=== PATIENT | male | born 1980 | race Two or more races ===

== ENCOUNTER 2019-09-27 22:32 | Inpatient (IN) | payer MEDICAID ==
[~2019-09-27] VITALS: Ht 177.8 cm; Wt 92.6 kg
[2019-09-27 23:14] LABS: Urine Bacteria NONE SEEN /hpf (None Seen); Urine Blood Negative /uL (Negative); Urine Mucus FEW (None Seen); Urine Specific Gravity 1.025 (1.001-1.035); Urine WBC <1 /hpf (0 - 3)
[2019-09-27 23:28] LABS: Basophils # (auto) 0.1 10 ^3/uL (0-0.2); Basophils % (auto) 0.4 % (0.0-2.0); Eosinophils # (auto) 0 10 ^3/uL (0-0.8); Eosinophils % (auto) 0.3 % (0.0-7.0); Hematocrit 45.2 % (41.0-53.0); Hemoglobin 15.3 g/dL (13.5-17.5); Lymphocytes # (auto) 2.8 10 ^3/uL (0.4-5.4); Lymphocytes % (auto) 17.1 % (10.0-50.0); Mean Corpuscular Hemoglobin 31.7 pg (28.0-32.0); Mean Corpuscular Hgb Conc. 33.9 g/dL (32.0-36.0); Mean Corpuscular Volume 93.5 fL (80.0-100.0); Neutrophils # (auto) 11.6 10 ^3/uL (1.6-8.6); Neutrophils % (auto) 70.2 % (37.0-80.0); Nucleated Red Blood Cells % 0.1 %; Platelet Count (auto) 265 10^3/uL (140-450); Red Blood Cells 4.83 10^6/uL (4.5-5.90); Red Cell Distribution Width 12.9 % (11.8-14.3); White Blood Cell 16.5 10^3/uL (4.4-10.8)
[2019-09-27] MEDS ORDERED: SODIUM CHLORIDE 0.9% 1,000 ML IV ONE (23:45)
[2019-09-27] MEDS ORDERED: metroNIDAZOLE 500MG/100ML 100 ML IV ONE (23:45)
[2019-09-27] MEDS ORDERED: MORPHINE SULFATE 10 MG/ML INJ 1ML SDV IV ONE (23:45)
[2019-09-27] MEDS ORDERED: cefTRIAXone 1GM/50ML D5W 50 ML IV ONE (23:45)
[2019-09-27] MEDS ORDERED: ACETAMINOPHEN 325 MG TAB PO ONE (23:45)
[2019-09-27] MEDS ORDERED: ONDANSETRON HCL 4 MG/2 ML VIAL IV ONE (23:45)
[2019-09-27 23:46] LABS: Albumin 3.9 g/dL (3.4-5.0); Calcium 8.3 mg/dL (8.5-10.1); Magnesium 2.1 mg/dL (1.6-2.6); Potassium 3.7 mmol/L (3.5-5.1)
[2019-09-27 23:49] LABS: BUN/Creatinine Ratio 14.7; Bilirubin, Total 0.9 mg/dL (0.2-1.0); Total Protein 8.7 g/dL (6.4-8.2)
[2019-09-28] VITALS (8 sets, daily range): BP systolic 120–143; BP diastolic 73–89
[2019-09-28] MEDS ORDERED: MORPHINE SULF INJ 2 MG/ML SYRINGE 1ML IV PRN (01:00)
[2019-09-28] MEDS ORDERED: NITROGLYCERIN 0.4 MG SL TAB SL PRN (01:00)
[2019-09-28] MEDS: SODIUM CHLORIDE 0.9% 1,000 ML IV SCH ×3 (02:48→17:35)
[2019-09-28] MEDS ORDERED: ALPR0.5T7 PO (05:24)
[2019-09-28] MEDS: metroNIDAZOLE 500MG/100ML 100 ML IV SCH ×3 (05:27→22:27)
[2019-09-28] MEDS: MORPHINE SULFATE 4 MG/ML SYR/VIAL IV PRN ×3 (05:39→20:47)
--- NOTE | 2019-09-28 07:10 | NUR ---
0300PATIENT ADMITTED FROM ER THIS MORNING WITH CMPLAINT OF ABDOMINAL MON.PATIENT WAS AWAKE AND ALERT AND ORIENTED X 4. PATIENT DENIED PAIN. WAS AFEBRILE ABDOMEN WAS SOFT AND NONTENDER.IV FLUID INFUSING AT 90ML PER HOUR. IV SITE CLEAR AND DRY. PATIENT WAS AMBULATORY AND S NPO. AT 0539 MEDICATED FOR PAIN. SLEPT SOON AFTER.
--- NOTE | 2019-09-28 07:30 | NUR ---
Opening Shift Note Assumed care of patient, alert and oriented x4. Respirations are even and unlabored. No S/S of distress/SOB. Reporting RLQ abdominal tenderness at this time. Bed is low, locked with x2 rails up. Call light is within reach. Instructed on POC and to call for assist PRN, will continue to monitor for changes Q1hr and PRN.
[2019-09-28] MEDS: cefTRIAXone 1GM/50ML D5W 50 ML IV SCH (08:32)
--- NOTE | 2019-09-28 08:40 | NUR ---
Dr. Stafford at bedside Dr. Stafford at bedside for surgical consult. MD is updating patient on POC. Patient verbalized understanding.
[2019-09-28] MEDS: PANTOPRAZOLE 40 MG/10 ML VIAL INJ IV SCH (09:31)
--- NOTE | 2019-09-28 10:43 | NUR ---
No insurance Left message with Rohith Bond in regards to patient not having insurance. Waiting for call back.
--- NOTE | 2019-09-28 11:30 | NUR ---
Pain Patient reporting 9/10 abdominal pain on adult pain scale. Patient is reporting pain as sharp in nature to RLQ/umbilical area. Medicated per MD order. Bed is low, locked with 2x side rails up. Call light is within reach. Will reassess.
--- NOTE | 2019-09-28 12:05 | NUR ---
Reassessment: Pain Upon entering the room this nurse found patient to be resting with eyes closed. No distress noted. Respirations are even and unlabored. Bed is low, locked with 2x side rails up. Call light is within reach. Will continue to monitor.
--- NOTE | 2019-09-28 12:20 | NUR ---
PICC LINE CONSENT Signed by patient and MD. Filed in chart. Emma (picc line nurse) stated she will either see patient later today or possibly tomorrow morning. Will continue to monitor.
[2019-09-28 14:37] LABS: INR 1.11 (0.9-1.15)
[2019-09-28] MEDS ORDERED: TPN PER PHARMACY 0 ML IV SCH (15:00)
[2019-09-28] MEDS ORDERED: AMINO ACID INFUSION IN D5W 2,000 ML IV NR (20:00)
--- NOTE | 2019-09-28 20:56 | NUR ---
PICC line placement Patient educated on need for PICC line placement. All risks and benefits explained and all questions and concerns addressed prior to procedure. Noted past medical history and allergies with no contraindications. INR and Plt counts within acceptable range. 5fr PICC line inserted via right basilic vein using [employer] US and Tip Location System. Sterile technique with maximum barrier precautions utilized. Blood return obtained from each of 2 lumens and each flushed easily with NS using proper technique. PICC secured with Stat-lock; biodisc and occlusive dressing applied. Stat portable chest x-ray obtained for PICC tip placement. *Baseline Arm Circumference 35cm. PICC lot #[id number]. INTERNAL LENGTH 44CM EXTERNAL LENGTH 0CM
[2019-09-28] MEDS ORDERED: LIDOCAINE 1% (LOCAL ANESTH.) PF 5ml SDV ID ONE (21:00)
--- NOTE | 2019-09-28 21:58 | NUR ---
DOUBLE LUMEN PICC LINE INSERTED RIGH UPPER ARM AN HOUR AGO. XRAY VARIFICATION DONE. PLACEMENT CONFIRMED CORRECT FOR USE.
--- NOTE | 2019-09-28 22:19 | NUR ---
OK to use PICC line Xray completed. OK to use PICC line by radiologist.
[2019-09-28] MEDS: SODIUM CHLOR 0.9% PF (SALINE LOCK) 10ML VIAL/SYR IV SCH (22:26)
[2019-09-29] MEDS ORDERED: DEXTROSE (50%) 50ML SYRG IV SCH
[2019-09-29 05:00] VITALS: BP 132/88
[2019-09-29] MEDS: SODIUM CHLORIDE 0.9% 1,000 ML IV SCH ×2 (05:27→13:46)
[2019-09-29] MEDS: metroNIDAZOLE 500MG/100ML 100 ML IV SCH ×3 (05:36→22:03)
[2019-09-29 05:38] LABS: Basophils # (auto) 0.1 10 ^3/uL (0-0.2); Basophils % (auto) 0.5 % (0.0-2.0); Eosinophils # (auto) 0.1 10 ^3/uL (0-0.8); Eosinophils % (auto) 0.4 % (0.0-7.0); Hematocrit 40.5 % (41.0-53.0); Hemoglobin 13.7 g/dL (13.5-17.5); Lymphocytes # (auto) 3.4 10 ^3/uL (0.4-5.4); Mean Corpuscular Hemoglobin 31.9 pg (28.0-32.0); Mean Corpuscular Hgb Conc. 33.9 g/dL (32.0-36.0); Mean Corpuscular Volume 94.1 fL (80.0-100.0); Monocytes # (auto) 1.8 10 ^3/uL (0-1.3); Monocytes % (auto) 10.8 % (0.0-12.0); Neutrophils # (auto) 11.6 10 ^3/uL (1.6-8.6); Neutrophils % (auto) 68.3 % (37.0-80.0); Nucleated Red Blood Cells % 0.1 %; Platelet Count (auto) 228 10^3/uL (140-450); Red Cell Distribution Width 13.1 % (11.8-14.3)
[2019-09-29 05:57] LABS: Albumin 3.3 g/dL (3.4-5.0); Magnesium 2.2 mg/dL (1.6-2.6); Potassium 3.7 mmol/L (3.5-5.1)
[2019-09-29] MEDS: InsuLIN REG 1unit/0.01ml Soln (100units/ml) SC SCH ×5 (06:00→23:53)
[2019-09-29] MEDS: ACCU-CHEK COMFORT CURVE STRIP VI SCH ×5 (06:01→23:53)
[2019-09-29 06:03] LABS: BUN/Creatinine Ratio 12.8; Phosphorus 3.2 mg/dL (2.5-4.90); Pre Albumin 15.1 mg/dL (20.0-40.0); Total Protein 7.6 g/dL (6.4-8.2)
--- NOTE | 2019-09-29 07:35 | NUR ---
Opening Note Received report from waiter/waitress formal RN. Patient is awake, alert and oriented x4. No signs or symptoms of distress noted at this time. Patient complains of abdominal pain 8/, will mediate per orders. Patient is on room air, respirations even and unlabored. Reviewed plan of care with patient, patient verbalized understanding. Bed in low and locked position, call light within reach. Will continue to monitor Q1 hour and PRN.
[2019-09-29] MEDS: PANTOPRAZOLE 40 MG/10 ML VIAL INJ IV SCH (09:34)
[2019-09-29] MEDS: cefTRIAXone 1GM/50ML D5W 50 ML IV SCH (09:34)
--- NOTE | 2019-09-29 09:45 | NUR ---
Pain Patient complains of abdominal pain 8/10 and is requesting medications. Will medicate per orders. Will continue to monitor Q1 hour and PRN.
[2019-09-29] MEDS: MORPHINE SULFATE 4 MG/ML SYR/VIAL IV PRN (09:46)
[2019-09-29] MEDS: SODIUM CHLOR 0.9% PF (SALINE LOCK) 10ML VIAL/SYR IV SCH ×2 (11:11→22:03)
[2019-09-29 13:21] VITALS: BP 126/81
--- NOTE | 2019-09-29 13:53 | NUR ---
TPN Consult Consider increasing TPN rate to meet or exceed 75% of needs Est Energy needs 5372-9866 kcal (20-25 kcal/kg BW 93.4 kg) Est protein needs 75-93g (0.8-1g/kg BW 93.4kg) Will reassess prn Addendum: 09/29/19 at [address] Amended: Links added.
[2019-09-29 16:27] VITALS: BP 132/85
--- NOTE | 2019-09-29 19:10 | NUR ---
Closing Note Report given to employee relations assistant RN. No signs or symptoms of distress noted at this time.
--- NOTE | 2019-09-29 19:40 | NUR ---
Opening Shift Note Assumed care of patient, awake and alert x4. No S/S of distress/SOB or pain. Call light is within reach, side rails up x2, bed is in the lowest position. Instructed on POC and to call for assist PRN, will continue to monitor for changes Q1hr and PRN.
[2019-09-29] MEDS ORDERED: TPN PER PHARMACY IV NR ×9 (20:00)
[2019-09-29 22:00] VITALS: BP 147/92
[2019-09-29] MEDS: ONDANSETRON HCL 4 MG/2 ML VIAL IV PRN (22:04)
[2019-09-29] MEDS: MORPHINE SULF INJ 2 MG/ML SYRINGE 1ML IV PRN (22:04)
--- NOTE | 2019-09-29 22:04 | NUR ---
PAIN Patient is complaining of pain to the lower abdomen 8/0-10. Morphine administered as ordered, will reassess.
--- NOTE | 2019-09-29 22:34 | NUR ---
Patient states pain is now 5/0-10 which is tolerable for him, no further intervention needed, will continue to monitor.
[2019-09-30 05:00] VITALS: BP 125/78
[2019-09-30] MEDS: InsuLIN REG 1unit/0.01ml Soln (100units/ml) SC SCH ×3 (06:00→18:00)
[2019-09-30] MEDS: ACCU-CHEK COMFORT CURVE STRIP VI SCH ×3 (06:06→18:11)
[2019-09-30] MEDS: metroNIDAZOLE 500MG/100ML 100 ML IV SCH ×3 (06:06→21:43)
--- NOTE | 2019-09-30 07:25 | NUR ---
Opening Note Received report from lieutenant shift supervisor RN. Patient resting in bed with eyes closed, no signs or symptoms of distress noted at this time. Patient is on room air, respirations even and unlabored. Bed in low and locked position, call light within reach. Will continue to monitor Q1 hour and PRN.
[2019-09-30 08:27] LABS: Basophils # (auto) 0.1 10 ^3/uL (0-0.2); Basophils % (auto) 0.7 % (0.0-2.0); Eosinophils # (auto) 0.2 10 ^3/uL (0-0.8); Eosinophils % (auto) 1.5 % (0.0-7.0); Hematocrit 41.6 % (41.0-53.0); Lymphocytes % (auto) 18.9 % (10.0-50.0); Mean Corpuscular Hemoglobin 31.7 pg (28.0-32.0); Mean Corpuscular Hgb Conc. 33.7 g/dL (32.0-36.0); Mean Corpuscular Volume 94.1 fL (80.0-100.0); Monocytes % (auto) 9.6 % (0.0-12.0); Neutrophils # (auto) 7.5 10 ^3/uL (1.6-8.6); Neutrophils % (auto) 69.3 % (37.0-80.0); Nucleated Red Blood Cells % 0.1 %; Platelet Count (auto) 291 10^3/uL (140-450); Red Blood Cells 4.42 10^6/uL (4.5-5.90); Red Cell Distribution Width 13.1 % (11.8-14.3); White Blood Cell 10.8 10^3/uL (4.4-10.8)
[2019-09-30 08:50] LABS: Albumin 3.1 g/dL (3.4-5.0); Magnesium 2.8 mg/dL (1.6-2.6); Phosphorus 3.9 mg/dL (2.5-4.90)
[2019-09-30 08:53] LABS: Bilirubin, Total 0.6 mg/dL (0.2-1.0); Total Protein 7.7 g/dL (6.4-8.2)
[2019-09-30 09:00] VITALS: BP 119/85
[2019-09-30] MEDS: cefTRIAXone 1GM/50ML D5W 50 ML IV SCH (09:30)
[2019-09-30] MEDS: PANTOPRAZOLE 40 MG/10 ML VIAL INJ IV SCH (09:31)
[2019-09-30] MEDS: MORPHINE SULF INJ 2 MG/ML SYRINGE 1ML IV PRN ×3 (09:39→21:43)
[2019-09-30] MEDS: SODIUM CHLOR 0.9% PF (SALINE LOCK) 10ML VIAL/SYR IV SCH ×2 (10:35→21:44)
[2019-09-30] MEDS: SODIUM CHLORIDE 0.9% 1,000 ML IV SCH (10:36)
--- NOTE | 2019-09-30 12:23 | NUR ---
assessment Patient is a 39 year old male who is alert and oriented. Patients cognitive abilities are intact. Prior to admission patient lived home with family and functioned independently. Patient informed me he is able to care for his own ADLs. Per patient he will return home to his prior living arrangements post discharge and family will transport him home. Patient has no insurance. Patient has been assessed by Rohith Bond of [facility]. Patient s medi-treasure is secured. I have provided patient with resources for [facility], Dr. Kirk, and [facility] urgent care for follow up visits. I have provided patient with a prescription card from community assistance program. Patient has no post discharge needs identified. I informed patient he has a right to speak to a older adult social work specialist regarding all care. I informed patient he has a right to participate in any and all discharge planning. Patient does not have a POA and advanced directive. I have offered patient information on POA and advanced directives. I informed the patient the advantages and benefits of having an Advanced Directive. Patient verbalized understanding and agreed to discharge plan. Addendum: 09/30/19 at 1224 by Daniela RODRIGUEZ Amended: Links added.
[2019-09-30 13:18] VITALS: BP 137/75
[2019-09-30 17:00] VITALS: BP 148/89
--- NOTE | 2019-09-30 18:15 | NUR ---
TPN stopped Patient states he feels very bloated and has had two loose bowel movements. Patient states he thinks it is from the TPN. Medication stopped at this time. Patient educated. Will continue to monitor Q1 hour and PRN.
--- NOTE | 2019-09-30 19:19 | NUR ---
Closing Note Report given to [facility] shift lead RN. No signs or symptoms of distress noted at this time.
--- NOTE | 2019-09-30 19:30 | NUR ---
Opening Shift Note Assumed care of patient, awake and alert x4. No S/S of distress/SOB or pain. Explained benefits and risks for TPN, patient stated he will try it again at 20:00. Call light is within reach, side rails up x2, bed is in the lowest position. Instructed on POC and to call for assist PRN, will continue to monitor for changes Q1hr and PRN.
[2019-09-30] MEDS ORDERED: TPN PER PHARMACY IV NR ×7 (20:00)
[2019-09-30] MEDS: ONDANSETRON HCL 4 MG/2 ML VIAL IV PRN (21:43)
[2019-10-01] MEDS: ACCU-CHEK COMFORT CURVE STRIP VI SCH ×5 (00:31→23:59)
[2019-10-01 00:46] VITALS: BP 117/72
[2019-10-01] MEDS: ONDANSETRON HCL 4 MG/2 ML VIAL IV PRN (03:52)
[2019-10-01] MEDS: MORPHINE SULF INJ 2 MG/ML SYRINGE 1ML IV PRN ×4 (03:52→21:47)
--- NOTE | 2019-10-01 03:52 | NUR ---
Patient is complaining of 8/0-10 pain to the lower abdomen with intense cramping and nausea. Morphine and Zofran administered as ordered, will reassess.
--- NOTE | 2019-10-01 04:22 | NUR ---
Patient states pain is now a 5/0-10 which is tolerable for him. The nausea is not completely gone, but it is better and more manageable. He states he is okay for now, but maybe later we can talk to the doctor about this TPN, "I feel worse since I have been on it since yesterday." Call light is within reach, will continue to monitor.
[2019-10-01 05:07] LABS: Basophils # (auto) 0 10 ^3/uL (0-0.2); Basophils % (auto) 0.3 % (0.0-2.0); Eosinophils # (auto) 0.1 10 ^3/uL (0-0.8); Hematocrit 40.8 % (41.0-53.0); Hemoglobin 13.9 g/dL (13.5-17.5); Lymphocytes # (auto) 2.1 10 ^3/uL (0.4-5.4); Lymphocytes % (auto) 14.5 % (10.0-50.0); Mean Corpuscular Hgb Conc. 34.2 g/dL (32.0-36.0); Mean Corpuscular Volume 93.7 fL (80.0-100.0); Monocytes # (auto) 1.2 10 ^3/uL (0-1.3); Monocytes % (auto) 8.4 % (0.0-12.0); Neutrophils # (auto) 11.1 10 ^3/uL (1.6-8.6); Neutrophils % (auto) 75.8 % (37.0-80.0); Platelet Count (auto) 312 10^3/uL (140-450); Red Blood Cells 4.36 10^6/uL (4.5-5.90); Red Cell Distribution Width 12.8 % (11.8-14.3); White Blood Cell 14.6 10^3/uL (4.4-10.8)
[2019-10-01 05:26] LABS: Albumin 3.1 g/dL (3.4-5.0); Magnesium 2.3 mg/dL (1.6-2.6); Potassium 3.5 mmol/L (3.5-5.1)
[2019-10-01 05:28] LABS: BUN/Creatinine Ratio 12.5
[2019-10-01 05:31] LABS: Bilirubin, Total 0.8 mg/dL (0.2-1.0); Total Protein 7.5 g/dL (6.4-8.2)
[2019-10-01 05:46] LABS: Phosphorus 3.5 mg/dL (2.5-4.90)
[2019-10-01] MEDS: InsuLIN REG 1unit/0.01ml Soln (100units/ml) SC SCH ×5 (06:00→23:59)
[2019-10-01] MEDS: metroNIDAZOLE 500MG/100ML 100 ML IV SCH ×3 (06:03→21:17)
[2019-10-01 06:15] VITALS: BP 125/89
--- NOTE | 2019-10-01 07:30 | NUR ---
Opening Note Received pt AAOx4 lying in bed, supine. Pt oriented to staff and POC. Bed is locked at lowest position and side rails up x2. Call light is within reach and pt was instructed to call if he needs any help. Pt verbalized understanding. TPN running at 62ml/hr through JOSH PICC line. Will continue to monitor. Signed: 10/01/19 at 1116 by RO MAJOR <Co-Signature Required> Co-Signed: 10/01/19 at 1116 by NATHALIA RUTHERFORD RN RN
[2019-10-01] MEDS: cefTRIAXone 1GM/50ML D5W 50 ML IV SCH (08:42)
[2019-10-01] MEDS: PANTOPRAZOLE 40 MG/10 ML VIAL INJ IV SCH (08:42)
[2019-10-01] MEDS: SODIUM CHLOR 0.9% PF (SALINE LOCK) 10ML VIAL/SYR IV SCH ×2 (08:44→21:18)
--- NOTE | 2019-10-01 09:10 | NUR ---
Pain pt states pain to abdomen at a scale of 8/10. will medicate per order. Signed: 10/01/19 at 1119 by RO MAJOR SN <Co-Signature Required> Co-Signed: 10/01/19 at 1119 by NATHALIA RUTHERFORD RN RN
[2019-10-01 09:18] VITALS: BP 112/77
--- NOTE | 2019-10-01 09:40 | NUR ---
Pain Reassessment Pt states pain level dropped to 5/10. Pt resting comfortably in bed, will continue to monitor. Signed: 10/01/19 at 1120 by RO MAJOR <Co-Signature Required> Co-Signed: 10/01/19 at 1120 by NATHALIA RUTHERFORD RN RN
[2019-10-01 13:00] VITALS: BP 125/95
[2019-10-01] MEDS ORDERED: POTASSIUM CHL 20MEQ/100ML 100 ML IV ONE (13:00)
--- NOTE | 2019-10-01 13:05 | NUR ---
Dr. Herzog at bedside Discussing plan of care with patient and this RN. No new orders received. Will continue to monitor Q1 hour and PRN.
--- NOTE | 2019-10-01 14:54 | NUR ---
Nutrition Followup Notes Wt: 98.9 kg Pt sleeping with no family by bedside. pt with acute diverticulosis currently NPO on TPN support at 62 mls/hr which provides 1600 kcal and 70g of protein, 1320 NCP. Pt with inadequate PN support as it meets 68-85% of energy needs and 74-93% of protein needs. Est Energy needs: 8566-7403 kcal (20-25 kcal/kg BW 93.4 kg) Est protein needs 75-93g (0.8-1g/kg BW 93.4kg) Will reassess prn LABS: ALB 3.1 L, GLU 133 H, CA 8.0 L GI: Pt had1 BM on 09/29 per RN doc BS: 20 low risk per RN doc PES: Inadequate oral intake aeb pt NPO diet order r/t current medical condition Comments Will continue to closely monitor pertinent labs, NPO status, PN tolerance, and skin status prn. Will followup in 2-3 days 1) Continue to monitor po status, skins status and labs 2) Consider increasing TPN rate to meet or exceed 75% of needs 3) Continue current plan of care
[2019-10-01 17:21] VITALS: BP 146/91
--- NOTE | 2019-10-01 19:30 | NUR ---
Opening Shift Note Assumed care of patient, awake and alert. No S/S of distress/SOB or pain. Instructed on POC and to call for assist PRN, will continue to monitor for changes Q1hr and PRN. Bed low with HOB in Kingston's position. Nurse call light to pt's right side. TPN currently running at 45ml per hour. Pt and this RN discussed rate for new bag as ordered at be at 67ml/hr. Pt states TPN or antibiotics "really tore up my stomach...last night." This RN suggested most likely SE of antibiotics. Pt reluctantly agreed possible. Pt and RN agreed that tonight's TPN would be slowly increased to ordered rate if no problems.
--- NOTE | 2019-10-01 19:30 | NUR ---
Closing Note Report given to shift superintendent RN. No signs or symptoms of distress noted at this time.
[2019-10-01] MEDS ORDERED: TPN PER PHARMACY IV NR ×10 (20:00)
[2019-10-01 22:00] VITALS: BP 126/93
--- NOTE | 2019-10-02 00:30 | NUR ---
Paging hospitalist 2/2 pt's having only small amount of pain relief with morphine. Pt states "it seems to keep me up for several hours at night; helps during day time."
[2019-10-02] MEDS: MORPHINE SULF INJ 2 MG/ML SYRINGE 1ML IV PRN (04:31)
--- NOTE | 2019-10-02 04:33 | NUR ---
No return call from horse and wagon driver hospitalist. Pt dropped of to sleep for approx 2 hours. Morphine 2mg IVP given now and warm packs to lower abd and to L PIV site which has sl erythema and redness. Will dc PIV later when pt has relaxed more.
[2019-10-02 05:00] VITALS: BP 124/82
[2019-10-02] MEDS: metroNIDAZOLE 500MG/100ML 100 ML IV SCH ×3 (05:30→21:42)
[2019-10-02] MEDS: InsuLIN REG 1unit/0.01ml Soln (100units/ml) SC SCH ×3 (05:33→17:46)
[2019-10-02] MEDS: ACCU-CHEK COMFORT CURVE STRIP VI SCH ×3 (05:39→17:47)
--- NOTE | 2019-10-02 05:50 | NUR ---
Jorge Greer MD called; order received for Dilaudid 1mg IV q4h prn severe pain (7-10) and to change morphine to 2mg IV q4h prn breakthrough pain.
[2019-10-02 06:15] LABS: Albumin 3.1 g/dL (3.4-5.0); Magnesium 2.5 mg/dL (1.6-2.6); Potassium 3.7 mmol/L (3.5-5.1)
[2019-10-02 06:20] LABS: BUN/Creatinine Ratio 14.9; Bilirubin, Total 0.8 mg/dL (0.2-1.0); Phosphorus 4.1 mg/dL (2.5-4.90); Total Protein 7.6 g/dL (6.4-8.2)
[2019-10-02] MEDS ORDERED: MORPHINE SULF INJ 2 MG/ML SYRINGE 1ML IV PRN (06:30)
--- NOTE | 2019-10-02 07:30 | NUR ---
Opening Shift Note Assumed care of patient, awake and alert. No S/S of distress/SOB or pain. Instructed on POC and to call for assist PRN, will continue to monitor for changes Q1hr and PRN. Fall precautions in place per safety protocol.
[2019-10-02 09:00] VITALS: BP 124/88
[2019-10-02] MEDS: cefTRIAXone 1GM/50ML D5W 50 ML IV SCH (09:54)
[2019-10-02] MEDS: PANTOPRAZOLE 40 MG/10 ML VIAL INJ IV SCH (09:54)
[2019-10-02] MEDS: SODIUM CHLOR 0.9% PF (SALINE LOCK) 10ML VIAL/SYR IV SCH ×2 (09:54→21:31)
--- NOTE | 2019-10-02 10:30 | NUR ---
IV removal IV to the left FA DC'd due to redness and tender to touch. Sterile technique used, catheter fully intact. Pressure dressing applied to site. Patient tolerated procedure well.
[2019-10-02 13:00] VITALS: BP 128/58
[2019-10-02] MEDS: ONDANSETRON HCL 4 MG/2 ML VIAL IV PRN (15:35)
[2019-10-02] MEDS: HYDROmorphone HCL 2 MG/ML VL IV PRN (15:35)
--- NOTE | 2019-10-02 19:22 | NUR ---
Endorsed care to night RN. Patient shows no signs of distress, sob, or pain at this time.
[2019-10-02] MEDS ORDERED: TPN PER PHARMACY IV NR ×10 (20:00)
[2019-10-02 22:00] VITALS: BP 128/84
[2019-10-03] MEDS: ACCU-CHEK COMFORT CURVE STRIP VI SCH ×4 (00:26→16:56)
[2019-10-03] MEDS: HYDROmorphone HCL 2 MG/ML VL IV PRN ×3 (00:33→21:46)
[2019-10-03] MEDS: ONDANSETRON HCL 4 MG/2 ML VIAL IV PRN ×3 (00:33→21:46)
[2019-10-03 05:00] VITALS: BP 125/80
[2019-10-03] MEDS: metroNIDAZOLE 500MG/100ML 100 ML IV SCH ×3 (05:29→21:45)
[2019-10-03] MEDS: InsuLIN REG 1unit/0.01ml Soln (100units/ml) SC SCH ×4 (05:32→16:56)
[2019-10-03 06:52] LABS: Basophils # (auto) 0 10 ^3/uL (0-0.2); Basophils % (auto) 0.4 % (0.0-2.0); Eosinophils # (auto) 0.2 10 ^3/uL (0-0.8); Hematocrit 41.2 % (41.0-53.0); Hemoglobin 13.7 g/dL (13.5-17.5); Lymphocytes # (auto) 2.1 10 ^3/uL (0.4-5.4); Lymphocytes % (auto) 19.4 % (10.0-50.0); Mean Corpuscular Hemoglobin 31.6 pg (28.0-32.0); Mean Corpuscular Hgb Conc. 33.3 g/dL (32.0-36.0); Monocytes % (auto) 9.1 % (0.0-12.0); Neutrophils # (auto) 7.6 10 ^3/uL (1.6-8.6); Neutrophils % (auto) 69.1 % (37.0-80.0); Platelet Count (auto) 302 10^3/uL (140-450); Red Blood Cells 4.33 10^6/uL (4.5-5.90); Red Cell Distribution Width 12.7 % (11.8-14.3)
[2019-10-03 07:11] LABS: BUN/Creatinine Ratio 13.1; Calcium 8.1 mg/dL (8.5-10.1); Magnesium 2.8 mg/dL (1.6-2.6); Potassium 4.1 mmol/L (3.5-5.1)
[2019-10-03 07:13] LABS: Bilirubin, Total 0.4 mg/dL (0.2-1.0); INR 1.23 (0.9-1.15); Partial Thromboplastin Time 30.3 sec (23.64-32.05); Phosphorus 4.6 mg/dL (2.5-4.90); Total Protein 7.6 g/dL (6.4-8.2)
--- NOTE | 2019-10-03 07:35 | NUR ---
Morning note Patient resting in bed with even and unlabored respirations, no distress noted. Instructed patient on POC, fall precautions, and to call for assistance as needed. patient verbalized understanding. Fall precautions in place with call light within reach.
[2019-10-03 09:50] VITALS: BP 124/86
[2019-10-03] MEDS: cefTRIAXone 1GM/50ML D5W 50 ML IV SCH (09:53)
[2019-10-03] MEDS: PANTOPRAZOLE 40 MG/10 ML VIAL INJ IV SCH (09:53)
[2019-10-03] MEDS: SODIUM CHLOR 0.9% PF (SALINE LOCK) 10ML VIAL/SYR IV SCH ×2 (09:53→21:55)
[2019-10-03 11:03] LABS: Hepatitis B Surface Antibody Negative
[2019-10-03 11:32] LABS: Hepatitis A Total Antibody Negative
--- NOTE | 2019-10-03 11:35 | NUR ---
RE: Pain Patient reports pain in the RLQ rated 5/10. Patient refused PRN pain medication. Patient reports pain is tolerable. Instructed patient to notify staff if he wants the PRN pain medication.
--- NOTE | 2019-10-03 11:58 | NUR ---
was at bedside - Dr. Shaikh GOMEZ discussed with this RN.
[2019-10-03 13:00] VITALS: BP 130/80
[2019-10-03 13:14] LABS: Hepatitis B Core Total AB Negative; Hepatitis B Surface Antigen Negative (Negative); Hepatitis C Antibody Negative (Negative)
--- NOTE | 2019-10-03 14:53 | NUR ---
Nutrition Followup Notes Wt: 93.8 kg Pt was awake with no family by bedside. Pt with acute diverticulosis currently NPO on TPN support at 71 mls/hr which provides 1690 kcal and 90g of protein, 1330 NCP. Pt stated he is still with some abdominal pain. Educated pt on diet. Pt with inadequate PN support for est caloric needs as it meets 72-90% of energy needs and with adequate protein support as it meets 97-120% of protein needs. Est Energy needs: 8785-3584 kcal (20-25 kcal/kg BW 93.4 kg) Est protein needs 75-93g (0.8-1g/kg BW 93.4kg) Will reassess prn LABS: ALB 3.0 L, GLU 119 H, CA 8.1 L GI: Pt had1 BM on 10/02 per RN doc BS: 21 low risk per RN doc PES: Inadequate oral intake aeb pt NPO diet order r/t current medical condition Comments Will continue to closely monitor pertinent labs, NPO status, PN tolerance, and skin status prn. Will followup in 2-3 days 1) Continue to monitor po status, skins status and labs 2) Consider increasing TPN rate to meet or exceed 75% of needs 3) Continue current plan of care
[2019-10-03] MEDS ORDERED: IOHEXOL 300 MG/ML 100ML BOTTLE IJ ONE (15:21)
--- NOTE | 2019-10-03 15:42 | NUR ---
Patient transferred to CT via wheelchair TPN being administered per MD order. Respirations even and unlabored, no distress noted.
--- NOTE | 2019-10-03 15:50 | NUR ---
Patient returned to unit via wheelchair TPN being administered per MD order. Respirations even and unlabored, no distress noted.
--- NOTE | 2019-10-03 16:29 | NUR ---
RE: CT results/paged MD Received phone call from radiologist agency reading CT results. Radiologist requesting to speak with MD assigned to patient. Dr. Shaikh escudero. Phone number to return the call is [phone]. Radiologist reading CT is Dr. Ajith Montgomery.
--- NOTE | 2019-10-03 16:32 | NUR ---
Paged Dr. Stafford RE: CT abd/pel results.
--- NOTE | 2019-10-03 16:41 | NUR ---
Updated Dr. Stafford of ABD/PEL CT results MD verbalized understanding. Patient to remain NPO. Continue to monitor per MD orders.
--- NOTE | 2019-10-03 16:55 | NUR ---
Susie CARLISLE - Dr. Acharya RE: ABD/PEL CT results
[2019-10-03 17:06] VITALS: BP 132/83
--- NOTE | 2019-10-03 17:35 | NUR ---
Spoke with Elijah Perez contacted this RN RE: ABD/PEL CT results. Chris had been notified by radiologist of results. Informed Chris that Dr. Stafford has been notified of ABD/PEL CT results and patient is remaining NPO.
--- NOTE | 2019-10-03 17:50 | NUR ---
Notified Dr. Acharya of ABD/PEL CT results. verbalized understanding. RN to notified Dr. Stafford. This RN informed Dr. Acharya that Dr. Stafford has been notified. verbalized understanding. Patient to remain NPO.
--- NOTE | 2019-10-03 18:45 | NUR ---
Closing note Patient resting in bed with even and unlabored respirations, no distress noted. TPN infusing per MD order. Fall precautions in place with call light within reach.
--- NOTE | 2019-10-03 19:18 | NUR ---
Care endorsed to ELISEO Dias.
--- NOTE | 2019-10-03 19:20 | NUR ---
Opening shift note Assumed care of patient. Patient sitting up in bed A&Ox4, respirations even and non-labored with no s/s of distress. Discussed POC and NPO status with patient who verbalized understanding. Bed in lowest, locked position with 2 side rails up. Call light within reach, will continue to monitor Q1hr and PRN.
[2019-10-03] MEDS ORDERED: TPN PER PHARMACY IV NR ×8 (20:00)
--- NOTE | 2019-10-03 21:50 | NUR ---
Pain Patient c/o 8/10 abdominal pain. Administered Dilaudid 1 mg per EMAR. Will continue to monitor.
[2019-10-03 22:00] VITALS: BP 136/83
--- NOTE | 2019-10-03 22:20 | NUR ---
Reassessed Pain Patient sleeping with eyes closed, respirations even and non-labored with no s/s of distress. Will continue to monitor.
[2019-10-04] MEDS: ACCU-CHEK COMFORT CURVE STRIP VI SCH ×4 (00:46→17:20)
[2019-10-04] MEDS: ONDANSETRON HCL 4 MG/2 ML VIAL IV PRN ×2 (04:30→08:27)
--- NOTE | 2019-10-04 04:35 | NUR ---
Patient c/o nausea Patient stated that he was not experiencing any pain at this time but was very nauseated. Administered Zofran 4 mg per EMAR. Will continue to monitor.
[2019-10-04 05:00] VITALS: BP 114/73
--- NOTE | 2019-10-04 05:00 | NUR ---
Nausea reassessed Patient stated that he felt better and that the nausea had subsided. Will continue to monitor.
--- NOTE | 2019-10-04 05:30 | NUR ---
PICC line dressing change Dressing falling off, replaced dressing and cleaned using sterile technique. No swelling, redness, or drainage noted. Patient tolerated well.
[2019-10-04] MEDS: metroNIDAZOLE 500MG/100ML 100 ML IV SCH ×3 (05:56→22:00)
[2019-10-04] MEDS: InsuLIN REG 1unit/0.01ml Soln (100units/ml) SC SCH ×4 (05:57→18:00)
[2019-10-04 06:54] LABS: Basophils # (auto) 0.1 10 ^3/uL (0-0.2); Basophils % (auto) 0.7 % (0.0-2.0); Eosinophils # (auto) 0.2 10 ^3/uL (0-0.8); Eosinophils % (auto) 1.6 % (0.0-7.0); Hemoglobin 13.2 g/dL (13.5-17.5); Lymphocytes # (auto) 1.7 10 ^3/uL (0.4-5.4); Lymphocytes % (auto) 15.3 % (10.0-50.0); Mean Corpuscular Hemoglobin 31.3 pg (28.0-32.0); Mean Corpuscular Volume 95.1 fL (80.0-100.0); Monocytes # (auto) 0.9 10 ^3/uL (0-1.3); Monocytes % (auto) 7.7 % (0.0-12.0); Neutrophils # (auto) 8.3 10 ^3/uL (1.6-8.6); Neutrophils % (auto) 74.7 % (37.0-80.0); Platelet Count (auto) 274 10^3/uL (140-450); Red Blood Cells 4.21 10^6/uL (4.5-5.90); Red Cell Distribution Width 12.8 % (11.8-14.3); White Blood Cell 11.1 10^3/uL (4.4-10.8)
[2019-10-04 07:06] LABS: Potassium 3.9 mmol/L (3.5-5.1)
[2019-10-04 07:15] LABS: Albumin 3.1 g/dL (3.4-5.0); BUN/Creatinine Ratio 15.2; Bilirubin, Total 0.4 mg/dL (0.2-1.0); Calcium 7.9 mg/dL (8.5-10.1); Magnesium 2.5 mg/dL (1.6-2.6); Phosphorus 3.7 mg/dL (2.5-4.90); Total Protein 7.9 g/dL (6.4-8.2)
--- NOTE | 2019-10-04 07:35 | NUR ---
Opening Shift Note Assumed care of patient, Pt awake and alert laying in bed in lateral position. Patient is on Room air with even and unlabored respirations. No S/S of distress/SOB or pain at this time. Bed is in lowest position, wheels are locked, side rails up x2, and call light is within reach. Instructed on POC and to call for assist PRN, will continue to monitor for changes Q1hr and PRN.
--- NOTE | 2019-10-04 07:37 | NUR ---
Closing shift note Patient A&Ox4, no SOB or s/s of distress. Endorsed care to ELISEO Garcia.
[2019-10-04] MEDS: PANTOPRAZOLE 40 MG/10 ML VIAL INJ IV SCH (08:24)
[2019-10-04 09:00] VITALS: BP 130/83
[2019-10-04] MEDS: cefTRIAXone 1GM/50ML D5W 50 ML IV SCH (09:57)
[2019-10-04] MEDS: SODIUM CHLOR 0.9% PF (SALINE LOCK) 10ML VIAL/SYR IV SCH ×2 (10:22→22:00)
--- NOTE | 2019-10-04 10:55 | NUR ---
DR. MORROW PAGED DR. MORROW PAGED REGARDING PATIENTS NPO STATUS. INFORMED DR OF PTS REQUEST TO AT LEAST HAVE ICE CHIPS. RECEIVED TELEPHONE ORDER FOR NPO WITH ICE CHIPS ONLY. PT INFORMED, WILL CONTINUE TO MONITOR.
[2019-10-04] MEDS ORDERED: PIPERACILLIN-TAZOB 3.375GM 100 ML IV ONE (12:15)
[2019-10-04] MEDS: HYDROmorphone HCL 2 MG/ML VL IV PRN ×2 (12:39→20:40)
[2019-10-04 13:00] VITALS: BP 124/79
[2019-10-04] MEDS ORDERED: GADOTERIDOL 279.3mg/mL 20ml Vial IV ONE (15:19)
--- NOTE | 2019-10-04 16:00 | NUR ---
Rounds Patient awake and alert. No S/S of distress/SOB or pain at this time. Will continue to monitor changes q1hr and PRN.
[2019-10-04 16:30] VITALS: BP 122/80
[2019-10-04] MEDS: PIPERACILLIN-TAZOB 3.375GM 100 ML IV SCH (17:30)
--- NOTE | 2019-10-04 19:02 | NUR ---
CLOSING NOTE Patient awake and alert. No S/S of distress/SOB or pain. Care endorsed to NOC Mavis GOMES.
[2019-10-04] MEDS ORDERED: TPN PER PHARMACY IV NR ×10 (20:00)
[2019-10-04 22:00] VITALS: BP 127/78
[2019-10-05 05:09] VITALS: BP 116/72
[2019-10-05 05:58] LABS: Basophils # (auto) 0.1 10 ^3/uL (0-0.2); Eosinophils # (auto) 0.3 10 ^3/uL (0-0.8); Eosinophils % (auto) 2.8 % (0.0-7.0); Hematocrit 41.2 % (41.0-53.0); Hemoglobin 13.7 g/dL (13.5-17.5); Lymphocytes # (auto) 2.3 10 ^3/uL (0.4-5.4); Mean Corpuscular Hemoglobin 31.7 pg (28.0-32.0); Mean Corpuscular Hgb Conc. 33.3 g/dL (32.0-36.0); Mean Corpuscular Volume 95.2 fL (80.0-100.0); Monocytes # (auto) 1.1 10 ^3/uL (0-1.3); Monocytes % (auto) 11.9 % (0.0-12.0); Neutrophils # (auto) 5.7 10 ^3/uL (1.6-8.6); Neutrophils % (auto) 60.3 % (37.0-80.0); Platelet Count (auto) 330 10^3/uL (140-450); Red Blood Cells 4.33 10^6/uL (4.5-5.90); Red Cell Distribution Width 12.8 % (11.8-14.3); White Blood Cell 9.4 10^3/uL (4.4-10.8)
[2019-10-05] MEDS: InsuLIN REG 1unit/0.01ml Soln (100units/ml) SC SCH ×4 (06:00→16:53)
[2019-10-05] MEDS: metroNIDAZOLE 500MG/100ML 100 ML IV SCH ×3 (06:07→21:39)
[2019-10-05] MEDS: PIPERACILLIN-TAZOB 3.375GM 100 ML IV SCH ×5 (06:08→23:59)
[2019-10-05] MEDS: ACCU-CHEK COMFORT CURVE STRIP VI SCH ×4 (06:12→16:53)
[2019-10-05 06:18] LABS: Albumin 3.2 g/dL (3.4-5.0); Potassium 3.5 mmol/L (3.5-5.1)
[2019-10-05 06:24] LABS: Bilirubin, Total 0.4 mg/dL (0.2-1.0); Calcium 7.9 mg/dL (8.5-10.1); Magnesium 2.6 mg/dL (1.6-2.6); Phosphorus 4.4 mg/dL (2.5-4.90); Pre Albumin 20.1 mg/dL (20.0-40.0); Total Protein 7.6 g/dL (6.4-8.2)
--- NOTE | 2019-10-05 07:59 | NUR ---
Opening Note Assumed pt care from NOC RN. Pt is a/ox4 with no s/s of distress or SOB. Pt is currently laying in bed with no complaints at this time. TPN is currently running at 84mL/HR. Discussed POC with pt; pt verbalized understanding. Safety measures maintained with call light within reach, bed in lowest position and side rails up. Will continue to monitor.
[2019-10-05 09:00] VITALS: BP 123/70
[2019-10-05] MEDS: PANTOPRAZOLE 40 MG/10 ML VIAL INJ IV SCH (09:10)
[2019-10-05] MEDS: SODIUM CHLOR 0.9% PF (SALINE LOCK) 10ML VIAL/SYR IV SCH ×2 (09:11→21:39)
[2019-10-05] MEDS: HYDROmorphone HCL 2 MG/ML VL IV PRN ×2 (10:36→20:29)
[2019-10-05 13:00] VITALS: BP 117/77
--- NOTE | 2019-10-05 15:17 | NUR ---
Nutrition Followup Notes Wt: 93.3 kg Pt was sleeping with no family by bedside. pt is currently NPO on TPN support at 84 mls/hr which provides 1930 kcal and 110g of protein, 1510 NCP. Pt with adequate PN support for est caloric needs as it meets 82-103% of energy needs and with adequate protein support as it meets 118-146% of protein needs. Est Energy needs: 3496-4498 kcal (20-25 kcal/kg BW 93.4 kg) Est protein needs 75-93g (0.8-1g/kg BW 93.4kg) Will reassess prn LABS: CA 7.9 L, ALB 3.2 L. GI: Pt had1 BM on 10/02 per RN doc BS: 22 low risk per RN doc PES: Inadequate oral intake aeb pt NPO diet order r/t current medical condition Comments Will continue to closely monitor pertinent labs, NPO status, PN tolerance, and skin status prn. Will followup in 2-3 days 1) Continue to monitor po status, skins status and labs 2) Consider increasing TPN rate to meet or exceed 75% of needs 3) Continue current plan of care
[2019-10-05 17:00] VITALS: BP 126/74
--- NOTE | 2019-10-05 19:40 | NUR ---
Opening Shift Note Assumed care of patient, awake and alert. No S/S of distress/SOB or pain. Instructed on POC and to call for assist PRN, will continue to monitor for changes Q1hr and PRN.
[2019-10-05] MEDS ORDERED: TPN PER PHARMACY IV NR ×8 (20:00)
[2019-10-06] MEDS: ACCU-CHEK COMFORT CURVE STRIP VI SCH ×5 (00:03→23:52)
[2019-10-06 05:00] VITALS: BP 123/83
[2019-10-06] MEDS: metroNIDAZOLE 500MG/100ML 100 ML IV SCH ×3 (05:10→22:01)
[2019-10-06] MEDS: InsuLIN REG 1unit/0.01ml Soln (100units/ml) SC SCH ×5 (06:00→23:52)
[2019-10-06] MEDS: PIPERACILLIN-TAZOB 3.375GM 100 ML IV SCH ×4 (06:49→23:44)
[2019-10-06] MEDS: HYDROmorphone HCL 2 MG/ML VL IV PRN ×3 (06:50→20:06)
--- NOTE | 2019-10-06 07:54 | NUR ---
Opening Note Assumed pt care from NOC RN. Pt is a/ox4 with no s/s of distress or SOB. Pt is currently sitting upright in bed with mild c/o of abdominal discomfort, 07/11. Abdomen is slightly tender upon palpation; more on R side. TPN is currently running into PICC line at 84mL/hr. Discussed POC with pt; pt verbalized understanding. Safety measures maintained with call light within reach, bed in lowest position and side rails up. Will continue to monitor for changes.
[2019-10-06] MEDS: PANTOPRAZOLE 40 MG/10 ML VIAL INJ IV SCH (08:42)
[2019-10-06] MEDS: SODIUM CHLOR 0.9% PF (SALINE LOCK) 10ML VIAL/SYR IV SCH ×2 (08:42→22:01)
[2019-10-06 08:45] LABS: Basophils # (auto) 0.1 10 ^3/uL (0-0.2); Eosinophils # (auto) 0.2 10 ^3/uL (0-0.8); Eosinophils % (auto) 2.4 % (0.0-7.0); Hematocrit 41.6 % (41.0-53.0); Hemoglobin 13.9 g/dL (13.5-17.5); Lymphocytes # (auto) 1.9 10 ^3/uL (0.4-5.4); Lymphocytes % (auto) 28.6 % (10.0-50.0); Mean Corpuscular Hemoglobin 31.4 pg (28.0-32.0); Mean Corpuscular Hgb Conc. 33.4 g/dL (32.0-36.0); Mean Corpuscular Volume 94.1 fL (80.0-100.0); Monocytes # (auto) 0.7 10 ^3/uL (0-1.3); Monocytes % (auto) 10.6 % (0.0-12.0); Neutrophils # (auto) 3.9 10 ^3/uL (1.6-8.6); Neutrophils % (auto) 57.4 % (37.0-80.0); Nucleated Red Blood Cells % 0.1 %; Platelet Count (auto) 330 10^3/uL (140-450); Red Blood Cells 4.42 10^6/uL (4.5-5.90); White Blood Cell 6.7 10^3/uL (4.4-10.8)
[2019-10-06 09:02] LABS: Albumin 3.1 g/dL (3.4-5.0); Calcium 7.9 mg/dL (8.5-10.1); Magnesium 2.6 mg/dL (1.6-2.6); Potassium 3.8 mmol/L (3.5-5.1)
[2019-10-06 09:06] LABS: BUN/Creatinine Ratio 15.9; Bilirubin, Total 0.4 mg/dL (0.2-1.0); Phosphorus 3.7 mg/dL (2.5-4.90); Total Protein 7.4 g/dL (6.4-8.2)
[2019-10-06 14:00] VITALS: BP 119/73
[2019-10-06 17:00] VITALS: BP 110/76
[2019-10-06] MEDS ORDERED: TPN PER PHARMACY IV NR ×8 (20:00)
[2019-10-06 22:00] VITALS: BP 123/78
[2019-10-07 05:00] VITALS: BP 114/80
[2019-10-07] MEDS: metroNIDAZOLE 500MG/100ML 100 ML IV SCH ×3 (05:40→21:30)
[2019-10-07] MEDS: HYDROmorphone HCL 2 MG/ML VL IV PRN ×3 (06:56→20:17)
[2019-10-07] MEDS: InsuLIN REG 1unit/0.01ml Soln (100units/ml) SC SCH ×3 (06:57→18:00)
[2019-10-07] MEDS: ACCU-CHEK COMFORT CURVE STRIP VI SCH ×3 (06:57→18:15)
[2019-10-07] MEDS: PIPERACILLIN-TAZOB 3.375GM 100 ML IV SCH ×3 (06:57→18:16)
[2019-10-07 09:00] VITALS: BP 117/81
[2019-10-07] MEDS: SODIUM CHLOR 0.9% PF (SALINE LOCK) 10ML VIAL/SYR IV SCH ×2 (10:17→21:31)
[2019-10-07] MEDS: PANTOPRAZOLE 40 MG/10 ML VIAL INJ IV SCH (10:17)
[2019-10-07 10:44] LABS: Albumin 3.1 g/dL (3.4-5.0); Calcium 8.1 mg/dL (8.5-10.1); Magnesium 2.6 mg/dL (1.6-2.6); Potassium 3.8 mmol/L (3.5-5.1)
[2019-10-07 10:47] LABS: BUN/Creatinine Ratio 15.2; Bilirubin, Total 0.3 mg/dL (0.2-1.0); Phosphorus 3.5 mg/dL (2.5-4.90); Total Protein 7.4 g/dL (6.4-8.2)
--- NOTE | 2019-10-07 10:56 | NUR ---
Nutrition Followup Notes Wt: 93.3 kg Pt reports being hungry, could eat when diet advances. Pt reports possible s/x tomorrow. pt is currently NPO on TPN support at 84 mls/hr which provides 1930 kcal and 110g of protein, 1510 NCP. Pt with adequate PN support for est caloric needs as it meets 82-103% of energy needs and with adequate protein support as it meets 118-146% of protein needs. Est Energy needs: 3445-7740 kcal (20-25 kcal/kg BW 93.4 kg) Est protein needs 75-93g (0.8-1g/kg BW 93.4kg) Will reassess prn LABS: CA 7.9 L, ALB 3.1 L. GI: Pt had1 BM on 10/06 per RN doc BS: 22 low risk per RN doc PES: Partially resolved, pt receiving TPN to meet needs: Inadequate oral intake aeb pt NPO diet order r/t current medical condition Comments Will continue to closely monitor pertinent labs, NPO status, PN tolerance, and skin status prn. Will followup in 2-3 days 1) Continue to monitor po status, skins status and labs 2) Continue TPN rate to meet or exceed 75% of needs 3) Continue current plan of care
[2019-10-07 13:00] VITALS: BP 104/75
[2019-10-07 17:00] VITALS: BP 123/79
[2019-10-07] MEDS ORDERED: TPN PER PHARMACY IV NR ×9 (20:00)
[2019-10-07 22:00] VITALS: BP 110/77
[2019-10-08] MEDS: PIPERACILLIN-TAZOB 3.375GM 100 ML IV SCH ×4 (00:16→17:37)
[2019-10-08] MEDS: ACCU-CHEK COMFORT CURVE STRIP VI SCH ×5 (00:16→23:45)
[2019-10-08] MEDS: HYDROmorphone HCL 2 MG/ML VL IV PRN ×3 (04:46→22:05)
[2019-10-08] MEDS: metroNIDAZOLE 500MG/100ML 100 ML IV SCH ×3 (04:46→22:04)
[2019-10-08 05:00] VITALS: BP 121/70
[2019-10-08] MEDS: InsuLIN REG 1unit/0.01ml Soln (100units/ml) SC SCH ×5 (06:00→23:44)
[2019-10-08 07:15] LABS: Albumin 3.4 g/dL (3.4-5.0); Calcium 8.6 mg/dL (8.5-10.1); Magnesium 2.6 mg/dL (1.6-2.6); Potassium 4.1 mmol/L (3.5-5.1)
[2019-10-08 07:18] LABS: BUN/Creatinine Ratio 15.5; Bilirubin, Total 0.3 mg/dL (0.2-1.0); Phosphorus 4.6 mg/dL (2.5-4.90); Total Protein 7.5 g/dL (6.4-8.2)
--- NOTE | 2019-10-08 08:00 | NUR ---
OPENING SHIFT NOTE ASSUMED CARE OF PATIENT AWAKE AND ALERT. NO S/S OF DISTRESS NOTED. PATIENT UPDATED ON POC FOR THE DAY AND ALL QUESTIONS ANSWERED. BED IS IN LOWEST, LOCKED POSITION WITH SIDE RAILS UP X2 AND CALL LIGHT WITHIN REACH. WILL CONTINUE TO MONITOR Q1H AND PRN.
[2019-10-08 09:31] VITALS: BP 111/73
[2019-10-08] MEDS: SODIUM CHLOR 0.9% PF (SALINE LOCK) 10ML VIAL/SYR IV SCH ×2 (10:03→22:04)
[2019-10-08] MEDS: PANTOPRAZOLE 40 MG/10 ML VIAL INJ IV SCH (10:03)
[2019-10-08 12:33] VITALS: BP 117/79
[2019-10-08] MEDS ORDERED: TPN PER PHARMACY IV NR ×8 (20:00)
[2019-10-08 22:00] VITALS: BP 124/73
[2019-10-09] MEDS: PIPERACILLIN-TAZOB 3.375GM 100 ML IV SCH ×4 (01:11→17:56)
[2019-10-09 05:00] VITALS: BP 107/66
[2019-10-09] MEDS: InsuLIN REG 1unit/0.01ml Soln (100units/ml) SC SCH ×3 (06:00→17:57)
[2019-10-09] MEDS: metroNIDAZOLE 500MG/100ML 100 ML IV SCH ×3 (06:08→21:08)
[2019-10-09] MEDS: ACCU-CHEK COMFORT CURVE STRIP VI SCH ×3 (07:08→17:57)
[2019-10-09 07:53] LABS: Calcium 8.2 mg/dL (8.5-10.1); Potassium 4.2 mmol/L (3.5-5.1)
[2019-10-09 08:01] LABS: Albumin 3.2 g/dL (3.4-5.0); BUN/Creatinine Ratio 14.4; Bilirubin, Total 0.3 mg/dL (0.2-1.0); Magnesium 2.2 mg/dL (1.6-2.6); Phosphorus 3.9 mg/dL (2.5-4.90); Pre Albumin 24.8 mg/dL (20.0-40.0); Total Protein 7.5 g/dL (6.4-8.2)
[2019-10-09 09:08] VITALS: BP 113/75
[2019-10-09] MEDS: SODIUM CHLOR 0.9% PF (SALINE LOCK) 10ML VIAL/SYR IV SCH ×2 (09:53→21:08)
[2019-10-09] MEDS: PANTOPRAZOLE 40 MG/10 ML VIAL INJ IV SCH (09:53)
--- NOTE | 2019-10-09 10:07 | NUR ---
Nutrition Followup Notes Wt: 91.9 kg Pt is NPO since 09/28/19, on TPN support at 80 mls/hr which provides 1890 kcal and 100g of protein, 1490 NPCs. Pt with adequate PN support for est caloric and protein needs as it meets 81-101% of energy needs and 108-133% of protein needs. Per MD doc, pt is with abdominal pain, and continues with conservative Tx, to have pt remain NPO for now. Will continue to closely monitor pertinent labs, PO intake and skin status prn. Will followup in 2-3 days Est Energy needs: 7876-0541 kcal (20-25 kcal/kg BW 93.4 kg) Est protein needs 75-93g (0.8-1g/kg BW 93.4kg) Will reassess prn LABS: CA 8.2 L, ALB 3.2 L, GLUC 126 H. GI: Pt had1 BM on 10/08 per RN doc BS: 21 low risk. Please refer to wound assessment report for full details. PES: Partially resolved, pt receiving TPN to meet needs: Inadequate oral intake aeb pt NPO diet order r/t current medical condition Comments Will continue to closely monitor pertinent labs, NPO status, PN tolerance, and skin status prn. Will followup in 2-3 days 1) Continue to monitor po status, skins status and labs 2) Continue TPN rate to meet or exceed 75% of needs (Resolved) 3) Gradually advance pt to oral diet when medically feasible and as tolerated. 4) Continue current plan of care
[2019-10-09] MEDS: HYDROmorphone HCL 2 MG/ML VL IV PRN ×2 (11:23→20:10)
[2019-10-09 12:48] VITALS: BP 115/83
[2019-10-09 17:37] VITALS: BP 114/85
[2019-10-09 20:00] VITALS: BP 127/79
[2019-10-09] MEDS ORDERED: TPN PER PHARMACY IV NR ×9 (20:00)
--- NOTE | 2019-10-09 20:10 | NUR ---
Pain Patient c/o pain 8/10 to right abdomen. Pain medication administered.
--- NOTE | 2019-10-09 20:40 | NUR ---
Re Pain Patient is resting with eyes closed. No signs of pain or distress.
[2019-10-09 22:00] VITALS: BP 127/79
[2019-10-10] MEDS: InsuLIN REG 1unit/0.01ml Soln (100units/ml) SC SCH ×4 (00:05→17:52)
[2019-10-10] MEDS: ACCU-CHEK COMFORT CURVE STRIP VI SCH ×4 (00:05→17:52)
[2019-10-10 05:00] VITALS: BP 108/71
[2019-10-10] MEDS: metroNIDAZOLE 500MG/100ML 100 ML IV SCH ×3 (05:56→21:37)
[2019-10-10] MEDS: PIPERACILLIN-TAZOB 3.375GM 100 ML IV SCH ×5 (05:56→23:38)
--- NOTE | 2019-10-10 07:03 | NUR ---
Closing note Pt resting in right lateral position w. eyes closed. no s/s of pain or discomfort at this time. bed in low locked position, call light within reach.
[2019-10-10 07:38] LABS: Albumin 3.3 g/dL (3.4-5.0); Magnesium 2.6 mg/dL (1.6-2.6); Potassium 3.8 mmol/L (3.5-5.1)
[2019-10-10 07:43] LABS: BUN/Creatinine Ratio 14.8; Bilirubin, Total 0.5 mg/dL (0.2-1.0); Phosphorus 4.1 mg/dL (2.5-4.90); Total Protein 7.4 g/dL (6.4-8.2)
[2019-10-10 09:00] VITALS: BP 112/68
[2019-10-10] MEDS: SODIUM CHLOR 0.9% PF (SALINE LOCK) 10ML VIAL/SYR IV SCH ×2 (09:41→21:37)
[2019-10-10] MEDS: PANTOPRAZOLE 40 MG/10 ML VIAL INJ IV SCH (09:41)
[2019-10-10] MEDS: HYDROmorphone HCL 2 MG/ML VL IV PRN ×2 (11:12→20:37)
[2019-10-10] MEDS ORDERED: IOHEXOL 300 MG/ML 100ML BOTTLE IJ ONE (12:07)
[2019-10-10 13:00] VITALS: BP 132/86
[2019-10-10 17:00] VITALS: BP 107/77
[2019-10-10 20:00] VITALS: BP 118/69
[2019-10-10] MEDS ORDERED: TPN PER PHARMACY IV NR ×8 (20:00)
--- NOTE | 2019-10-10 20:37 | NUR ---
Pain Patient c/o pain / to abdomen. Pain medication administered.
--- NOTE | 2019-10-10 21:07 | NUR ---
Re Pain Patient states "I feel better my pain went down to a 3".
[2019-10-10 22:00] VITALS: BP 118/69
[2019-10-11] MEDS: ACCU-CHEK COMFORT CURVE STRIP VI SCH ×4 (00:22→18:33)
[2019-10-11 05:00] VITALS: BP 100/72
[2019-10-11] MEDS: PIPERACILLIN-TAZOB 3.375GM 100 ML IV SCH ×2 (05:32→12:09)
[2019-10-11] MEDS: metroNIDAZOLE 500MG/100ML 100 ML IV SCH (05:32)
[2019-10-11] MEDS: InsuLIN REG 1unit/0.01ml Soln (100units/ml) SC SCH ×4 (05:51→18:00)
[2019-10-11 06:41] LABS: Basophils # (auto) 0 10 ^3/uL (0-0.2); Basophils % (auto) 0.5 % (0.0-2.0); Eosinophils # (auto) 0.2 10 ^3/uL (0-0.8); Eosinophils % (auto) 2.3 % (0.0-7.0); Hematocrit 40.9 % (41.0-53.0); Hemoglobin 13.4 g/dL (13.5-17.5); Lymphocytes # (auto) 2.1 10 ^3/uL (0.4-5.4); Mean Corpuscular Hgb Conc. 32.9 g/dL (32.0-36.0); Mean Corpuscular Volume 94.2 fL (80.0-100.0); Monocytes # (auto) 0.7 10 ^3/uL (0-1.3); Monocytes % (auto) 9.8 % (0.0-12.0); Neutrophils # (auto) 3.9 10 ^3/uL (1.6-8.6); Neutrophils % (auto) 56.4 % (37.0-80.0); Nucleated Red Blood Cells % 0.1 %; Platelet Count (auto) 384 10^3/uL (140-450); Red Blood Cells 4.34 10^6/uL (4.5-5.90); Red Cell Distribution Width 12.7 % (11.8-14.3); White Blood Cell 6.8 10^3/uL (4.4-10.8)
--- NOTE | 2019-10-11 07:00 | NUR ---
Opening Shift Note Received report on the patient. Awake lying in bed. Patient shows no signs of distress at this time. Discussed plan of care with the patient. Bed in lowest position, side rails up x2, and the call light is within reach.
[2019-10-11 07:05] LABS: Potassium 3.8 mmol/L (3.5-5.1)
[2019-10-11 07:16] LABS: Albumin 3.2 g/dL (3.4-5.0); BUN/Creatinine Ratio 15.8; Bilirubin, Total 0.3 mg/dL (0.2-1.0); Calcium 8.2 mg/dL (8.5-10.1); Magnesium 2.2 mg/dL (1.6-2.6); Total Protein 7.3 g/dL (6.4-8.2)
[2019-10-11 09:00] VITALS: BP 118/73
[2019-10-11] MEDS: SODIUM CHLOR 0.9% PF (SALINE LOCK) 10ML VIAL/SYR IV SCH ×2 (10:33→21:29)
[2019-10-11] MEDS: PANTOPRAZOLE 40 MG/10 ML VIAL INJ IV SCH (10:33)
--- NOTE | 2019-10-11 11:53 | NUR ---
Dr Acharya at bedside. New orders received to wean TPN.
[2019-10-11 13:00] VITALS: BP 118/74
[2019-10-11] MEDS: metroNIDAZOLE 500 MG TAB PO SCH ×2 (14:14→21:29)
--- NOTE | 2019-10-11 14:49 | NUR ---
Nutrition Followup Notes Wt: 91.9 kg Pt on TPN support at 80 mls/hr which provides 1890 kcal and 100g of protein, 1490 NPCs. Pt with adequate PN support for est caloric and protein needs as it meets 81-101% of energy needs and 108-133% of protein needs. Per MD doc, pt is with abdominal pain. Pt now advanced to clear liq diet with no PO recorded yet Will followup in 2-3 days Est Energy needs: [id number] kcal (20-25 kcal/kg BW 93.4 kg) Est protein needs 75-93g (0.8-1g/kg BW 93.4kg) Will reassess prn LABS: GLU 116 H, CA 8.2 L, ALB 3.2 L GI: Pt had 1 BM on 10/08 per RN doc BS: 22 low risk. Please refer to wound assessment report for full details. PES: Partially resolved, pt receiving TPN to meet needs: Inadequate oral intake aeb pt NPO diet order r/t current medical condition Comments Will continue to closely monitor pertinent labs, NPO status, PN tolerance, and skin status prn. Will followup in 2-3 days 1) Gradually advance pt to oral diet when medically feasible and as tolerated. 2) Taper off PN as pt tolerate PO 4) Continue current plan of care
[2019-10-11] MEDS: HYDROmorphone HCL 2 MG/ML VL IV PRN ×2 (16:09→21:50)
[2019-10-11] MEDS ORDERED: levoFLOXacin 500 MG TAB PO ONE (16:30)
[2019-10-11 17:00] VITALS: BP 125/84
[2019-10-11 20:00] VITALS: BP 134/81
[2019-10-11] MEDS ORDERED: TPN PER PHARMACY IV NR ×9 (20:00)
--- NOTE | 2019-10-11 21:50 | NUR ---
Pain Patient c/o pain / to abdomen. Pain medication administered.
[2019-10-11 22:00] VITALS: BP 134/81
--- NOTE | 2019-10-11 22:50 | NUR ---
RE Pain Patient resting with eyes closed, no sign of pain or distress, will continue to monitor.
[2019-10-12 05:22] VITALS: BP 111/70
[2019-10-12] MEDS: metroNIDAZOLE 500 MG TAB PO SCH ×3 (05:44→21:30)
[2019-10-12] MEDS: InsuLIN REG 1unit/0.01ml Soln (100units/ml) SC SCH ×2 (05:51)
[2019-10-12] MEDS: ACCU-CHEK COMFORT CURVE STRIP VI SCH ×2 (05:52)
[2019-10-12 09:00] VITALS: BP 115/81
[2019-10-12] MEDS: FLORASTOR (S. BOULARDII) 250 MG CAP PO SCH (09:39)
[2019-10-12] MEDS: SODIUM CHLOR 0.9% PF (SALINE LOCK) 10ML VIAL/SYR IV SCH ×2 (09:39→22:26)
[2019-10-12] MEDS: levoFLOXacin 500 MG TAB PO SCH (09:40)
[2019-10-12] MEDS: PANTOPRAZOLE 40 MG TAB PO SCH (09:40)
[2019-10-12 13:00] VITALS: BP 124/86
[2019-10-12] MEDS: HYDROcodone-ACET 5/325MG TAB PO PRN ×2 (13:53→20:11)
[2019-10-12 17:00] VITALS: BP 126/74
[2019-10-12 22:00] VITALS: BP 137/85
[2019-10-13 05:00] VITALS: BP 102/74
[2019-10-13] MEDS: metroNIDAZOLE 500 MG TAB PO SCH ×2 (05:30→14:30)
--- NOTE | 2019-10-13 07:15 | NUR ---
Opening Note Received report from night shift manager RN. Patient resting in bed with eyes closed, no signs or symptoms of distress noted at this time. Patient is on room air, respirations even and unlabored. Bed in low and locked position, call light within reach. Will continue to monitor Q1 hour and PRN.
[2019-10-13 08:30] VITALS: BP 117/69
[2019-10-13] MEDS: SODIUM CHLOR 0.9% PF (SALINE LOCK) 10ML VIAL/SYR IV SCH (10:00)
[2019-10-13] MEDS: PANTOPRAZOLE 40 MG TAB PO SCH (10:34)
[2019-10-13] MEDS: FLORASTOR (S. BOULARDII) 250 MG CAP PO SCH (10:34)
[2019-10-13] MEDS: levoFLOXacin 500 MG TAB PO SCH (10:34)
[2019-10-13 12:30] VITALS: BP 121/82
[2019-10-13] MEDS ORDERED: METR500T PO (13:34)
[2019-10-13] MEDS ORDERED: SACC250C PO (13:34)
[2019-10-13] MEDS ORDERED: LEVO500T21 PO (13:34)
[2019-10-13 16:45] VITALS: BP 121/82
[2019-10-13 17:00] VITALS: BP 121/73
--- NOTE | 2019-10-13 17:55 | NUR ---
Discharge instructions given as ordered. Encourage to follow up with PMD as instructed. All questions and concerns addressed. Patient verbalized understanding. PICC line removed with catheter intact, pressure dressing applied. Telemetry unit returned to ICU. Patient taken to vehicle via wheelchair with all personal belongings, accompanied by staff. No distress noted at time of departure.
== END 2019-10-13 17:55 | disposition home or self-care (01) | DRG 720 ==
LOC: ER 22:32 → TELE 22:33 → TELE-WESTW 09-28 02:21
PROVIDERS: ADMIT Nurse Practitioner; ATTEND Internal Medicine
PROC: 02HV33Z Insertion of Infusion Device into Superior Vena Cava, Percutaneous Approach (ICD-10-PCS; principal; 2019-09-28)
PROC: B548ZZA Ultrasonography of Superior Vena Cava, Guidance (ICD-10-PCS; 2019-09-28)
PROC: 3E0336Z Introduction of Nutritional Substance into Peripheral Vein, Percutaneous Approach (ICD-10-PCS; 2019-09-29)
DX: A41.9 Sepsis, unspecified organism (principal); K57.20 Diverticulitis of large intestine with perforation and abscess without bleeding; F41.9 Anxiety disorder, unspecified; K42.9 Umbilical hernia without obstruction or gangrene; K76.0 Fatty (change of) liver, not elsewhere classified; K80.20 Calculus of gallbladder without cholecystitis without obstruction; N20.0 Calculus of kidney; Z79.899 Other long term (current) drug therapy
CPT/HCPCS: 36415; 36569; 71045; 74176; 74177; 74183; 76705; 80053; 81001; 82040; 82150; 82962; 83605; 83690; 83735; 84100; 84478; 85007; 85025; 85027; 85610; 85730; 86704; 86706; 86708; 86803; 87040; 87081; 87340; 96365; 96367; 96375; C9113; G0378; J0696; J2405; J2543; J3480; J3490; J7131

== ENCOUNTER 2019-11-24 00:18 | Inpatient (IN) | payer MEDICAID ==
[~2019-11-24] VITALS: Ht 175.3 cm; Wt 88.4 kg
[~2019-11-24 00:18] MED LIST: ALPR0.5T7 PO; LEVO500T21 PO; METR500T PO; SACC250C PO
[2019-11-24] MEDS ORDERED: SODIUM CHLORIDE 0.9% 1,000 ML IV ONE (00:45)
[2019-11-24] MEDS ORDERED: ONDANSETRON HCL 4 MG/2 ML VIAL IV ONE (00:45)
[2019-11-24] MEDS ORDERED: MORPHINE SULFATE 4 MG/ML SYR/VIAL IV ONE (00:45)
[2019-11-24] MEDS: PIPERACILLIN-TAZOB 3.375GM 100 ML IV SCH ×2 (00:50→12:41)
[2019-11-24] MEDS ORDERED: IOHEXOL 350 MG/ML 100ML IJ ONE (00:50)
[2019-11-24 01:35] LABS: Basophils # (auto) 0.1 10 ^3/uL (0-0.2); Basophils % (auto) 0.5 % (0.0-2.0); Eosinophils # (auto) 0 10 ^3/uL (0-0.8); Eosinophils % (auto) 0.3 % (0.0-7.0); Hematocrit 41.5 % (41.0-53.0); Hemoglobin 13.9 g/dL (13.5-17.5); Lymphocytes # (auto) 3.5 10 ^3/uL (0.4-5.4); Lymphocytes % (auto) 23.6 % (10.0-50.0); Mean Corpuscular Hemoglobin 30.8 pg (28.0-32.0); Mean Corpuscular Hgb Conc. 33.6 g/dL (32.0-36.0); Mean Corpuscular Volume 91.7 fL (80.0-100.0); Monocytes # (auto) 1.5 10 ^3/uL (0-1.3); Neutrophils # (auto) 9.7 10 ^3/uL (1.6-8.6); Neutrophils % (auto) 65.6 % (37.0-80.0); Platelet Count (auto) 263 10^3/uL (140-450); Red Blood Cells 4.52 10^6/uL (4.5-5.90); Red Cell Distribution Width 13.7 % (11.8-14.3); White Blood Cell 14.8 10^3/uL (4.4-10.8)
[2019-11-24 01:48] LABS: INR 1.06 (0.9-1.15); Partial Thromboplastin Time 31.9 sec (23.64-32.05)
[2019-11-24 01:53] LABS: Albumin 3.8 g/dL (3.4-5.0); Calcium 8.3 mg/dL (8.5-10.1); Potassium 3.4 mmol/L (3.5-5.1)
[2019-11-24 01:54] LABS: BUN/Creatinine Ratio 11.5
[2019-11-24 01:57] LABS: Bilirubin, Total 1.5 mg/dL (0.2-1.0); Total Protein 7.9 g/dL (6.4-8.2)
[2019-11-24 04:10] LABS: Urine Bacteria NONE SEEN /hpf (None Seen); Urine Blood Negative /uL (Negative); Urine WBC <1 /hpf (0 - 3)
[2019-11-24 04:26] LABS: Urine Specific Gravity > 1.050 (1.001-1.035)
[2019-11-24] MEDS ORDERED: PIPERACILLIN-TAZOB 3.375GM 100 ML IV ONE (05:30)
[2019-11-24] MEDS ORDERED: VANCOMYCIN 1GM/250ML 250 ML IV ONE (05:30)
[2019-11-24] MEDS ORDERED: NITROGLYCERIN 0.4 MG SL TAB SL PRN (07:00)
[2019-11-24] MEDS ORDERED: ONDANSETRON HCL 4 MG/2 ML VIAL IV PRN (07:00)
[2019-11-24] MEDS ORDERED: MORPHINE SULF INJ 2 MG/ML SYRINGE 1ML IV PRN (07:00)
[2019-11-24] MEDS: D5W/SOD CHLO 0.9% 1,000 ML IV SCH ×2 (08:54→20:53)
[2019-11-24] MEDS: MORPHINE SULFATE 4 MG/ML SYR/VIAL IV PRN ×3 (08:55→21:34)
[2019-11-24] MEDS ORDERED: LACT10SO70 PO (10:06)
[2019-11-24] MEDS: PANTOPRAZOLE 40 MG/10 ML VIAL INJ IV SCH (10:18)
[2019-11-24 12:00] VITALS: BP 125/81
--- NOTE | 2019-11-24 13:16 | NUR ---
Patient Received The patient arrived to the floor as an admission at approximately 1030hrs. The patient was in good spirits, A&Ox4, abdominal pain at 5/10, constant, but stable overall. He stated he was supposed to have a surgical consult today with Dr. Sheffield but the pain was too great and came to the ER last night. Completed the patient assessment, to include Med Rec and valuable sheet. Oriented the patient to the room, he's ambulatory but NPO. Spoke to Dr. Shepard of Surgery, he will see the patient this afternoon and he ordered he remain NPO and on antibiotics. Will continue to monitor.
[2019-11-24 13:24] VITALS: BP 135/88
[2019-11-24] MEDS ORDERED: metroNIDAZOLE 500MG/100ML 100 ML IV SCH (14:00)
[2019-11-24] MEDS: POTASSIUM CHL 20MEQ/100ML 100 ML IV SCH ×2 (16:02→17:57)
[2019-11-24 17:00] VITALS: BP 141/84
--- NOTE | 2019-11-24 19:25 | NUR ---
Received report from the Day Shift RN Preet. Initial assessment done. Pt. quiet, resting and sleeping.
--- NOTE | 2019-11-24 20:00 | NUR ---
Assessment done and completed. Pt. in Room Air, No s/s of sob, breathing regular, even and unlaobred. Lungs are clear bilaterally, Denies chest pain, presence of abdominal pain about 2-3/10 scale @ this time. Pt. SR @ @ the 70's to 80's @ the Tele Box # 37, IVF of D5 NS @ 75 mls./hr. continuous while on NPO. Pt. completed the 2 bags of K-rider from the Day Shift and able to tolerate the Potassium IV replacement well. Pt. Dr. Shepard ordered pt to have possible IR procedure tomorrow 11/25/19 for the drainage of the abdominal abscess. PIV access @ the RAC G # 22 which is inserted today 11/24/19 while admitted early today from ER due to abdominal pain. Generally skin intact. No BM yet and on continuous NPO. Pt. able to void well using urinal @ the bedside. Keep pt. informed and provided explanation to nsg. care and expected health care. Call-lights within pt.'s reach @ the bedside.
--- NOTE | 2019-11-24 21:34 | NUR ---
Pt. given Morphine Sulfate 2 mg. IV for severe abdominal pain hurting 8/10 scale as verbalized by the pt. Keep pt. [place], warm and comfortable. keep rrom environment quiet and dim-lighted.
[2019-11-24 22:00] VITALS: BP 141/86
--- NOTE | 2019-11-25 00:30 | NUR ---
Pt. sleeping and awakens intermittently, SR @ the monitor, and no s/s of pain or discomfort. Pt. is calm, quiet and resting undisturbed.
[2019-11-25] MEDS: PIPERACILLIN-TAZOB 3.375GM 100 ML IV SCH ×4 (00:50→18:25)
--- NOTE | 2019-11-25 04:00 | NUR ---
Provided bedside nsg. care. Pt. can ambulate to the BR with BRP. Maintained pt. safety with call-light within reach.
[2019-11-25 05:00] VITALS: BP 126/79
--- NOTE | 2019-11-25 06:00 | NUR ---
Pt. still sleeping but easily arousable by touch or slight voice.. No s/s of pain or discomfort. SR @ the monitor. No verbalization of pain @ this time.
[2019-11-25 08:00] VITALS: BP 117/74
[2019-11-25 08:47] LABS: Basophils # (auto) 0.1 10 ^3/uL (0-0.2); Basophils % (auto) 0.6 % (0.0-2.0); Eosinophils # (auto) 0.1 10 ^3/uL (0-0.8); Eosinophils % (auto) 0.9 % (0.0-7.0); Hematocrit 38.5 % (41.0-53.0); Hemoglobin 13.3 g/dL (13.5-17.5); Lymphocytes # (auto) 2.5 10 ^3/uL (0.4-5.4); Mean Corpuscular Hemoglobin 31.7 pg (28.0-32.0); Mean Corpuscular Hgb Conc. 34.4 g/dL (32.0-36.0); Mean Corpuscular Volume 92.2 fL (80.0-100.0); Monocytes # (auto) 1.4 10 ^3/uL (0-1.3); Monocytes % (auto) 12.6 % (0.0-12.0); Neutrophils # (auto) 6.9 10 ^3/uL (1.6-8.6); Neutrophils % (auto) 62.9 % (37.0-80.0); Nucleated Red Blood Cells % 0.5 %; Platelet Count (auto) 257 10^3/uL (140-450); Red Blood Cells 4.18 10^6/uL (4.5-5.90); Red Cell Distribution Width 13.8 % (11.8-14.3); White Blood Cell 10.9 10^3/uL (4.4-10.8)
[2019-11-25 08:56] LABS: Albumin 3.4 g/dL (3.4-5.0); Calcium 8.4 mg/dL (8.5-10.1); Potassium 3.7 mmol/L (3.5-5.1)
[2019-11-25 09:01] LABS: BUN/Creatinine Ratio 10.7; Bilirubin, Total 1.5 mg/dL (0.2-1.0); Total Protein 7.5 g/dL (6.4-8.2)
[2019-11-25] MEDS: PANTOPRAZOLE 40 MG/10 ML VIAL INJ IV SCH (09:07)
[2019-11-25] MEDS: D5W/SOD CHLO 0.9% 1,000 ML IV SCH ×2 (09:08→23:00)
[2019-11-25] MEDS: MORPHINE SULFATE 4 MG/ML SYR/VIAL IV PRN ×4 (09:08→22:28)
[2019-11-25] MEDS ORDERED: MIDAZOLAM HCL 1MG/1ML-2 ML VIAL IV ONE (11:30)
[2019-11-25] MEDS ORDERED: fentaNYL CITRATE 100 MCG/2 ML VL IV ONE (11:30)
[2019-11-25 12:00] VITALS: BP 128/83
[2019-11-25] MEDS ORDERED: LIDOCAINE 2%HCL (LOCAL ANESTH.) INJ 20ML MDV ONE (12:05)
--- NOTE | 2019-11-25 12:14 | NUR ---
Patient going down to radiology for guided abscess drainage.
[2019-11-25] MEDS ORDERED: TPN PER PHARMACY 0 ML IV SCH (14:30)
--- NOTE | 2019-11-25 15:52 | NUR ---
PICC line placement Patient educated on need for PICC line placement. All risks and benefits explained and all questions and concerns addressed prior to procedure. Noted past medical history and allergies with no contraindications. INR and Plt counts within acceptable range. 5 fr PICC line inserted via right basilic vein using [employer] US and Tip Location System. Sterile technique with maximum barrier precautions utilized. Blood return obtained from each of the 2 lumens and each flushed easily with NS using proper technique. PICC secured with Stat-lock; biodisc and occlusive dressing applied. Stat portable chest x-ray obtained for PICC tip placement. *Baseline Arm Circumference 31 cm. Internal length 42 cm. External length 0 cm. PICC lot #[id number]
[2019-11-25] MEDS ORDERED: LIDOCAINE 1% (LOCAL ANESTH.) PF 5ml SDV ID ONE (16:00)
--- NOTE | 2019-11-25 16:01 | NUR ---
Okay to use PICC line Xray completed and reviewed. Okay to use PICC line. Aydee GOMES notified.
[2019-11-25 17:00] VITALS: BP 126/74
--- NOTE | 2019-11-25 19:50 | NUR ---
Opening Shift Note Assumed care of patient, awake, AAOx4. No S/S of distress/SOB. On room air and BRP self. Started on Clinimix at 42 ml/hr. Bed in lowest locked position, side rails up x2, call light within reach. Instructed on POC and to call for assist PRN, will continue to monitor for changes Q1hr and PRN.
[2019-11-25] MEDS ORDERED: CLINIMIX PER PHARMACY IV NR (20:00)
[2019-11-25] MEDS ORDERED: DEXTROSE (50%) 50ML SYRG IV SCH (20:00)
[2019-11-25 22:00] VITALS: BP 131/81
[2019-11-25] MEDS: SODIUM CHLOR 0.9% PF (SALINE LOCK) 10ML VIAL/SYR IV SCH (22:13)
[2019-11-26 05:00] VITALS: BP 125/83
[2019-11-26] MEDS: ACCU-CHEK COMFORT CURVE STRIP VI SCH ×5 (05:47→23:10)
[2019-11-26] MEDS: PIPERACILLIN-TAZOB 3.375GM 100 ML IV SCH ×5 (05:47→23:21)
[2019-11-26] MEDS: InsuLIN REG 1unit/0.01ml Soln (100units/ml) SC SCH ×5 (05:48→23:10)
[2019-11-26] MEDS: MORPHINE SULFATE 4 MG/ML SYR/VIAL IV PRN ×2 (05:48→10:51)
[2019-11-26 08:22] VITALS: BP 123/81
[2019-11-26] MEDS: SODIUM CHLOR 0.9% PF (SALINE LOCK) 10ML VIAL/SYR IV SCH (08:55)
[2019-11-26] MEDS: PANTOPRAZOLE 40 MG/10 ML VIAL INJ IV SCH (08:56)
[2019-11-26 09:10] LABS: Albumin 3.2 g/dL (3.4-5.0); Calcium 7.7 mg/dL (8.5-10.1); Magnesium 2.4 mg/dL (1.6-2.6); Potassium 3.3 mmol/L (3.5-5.1)
[2019-11-26 09:15] LABS: BUN/Creatinine Ratio 10.4; Phosphorus 4.2 mg/dL (2.5-4.90); Pre Albumin 11.9 mg/dL (20.0-40.0); Total Protein 7.2 g/dL (6.4-8.2)
[2019-11-26] MEDS: POTASSIUM CHL 20MEQ/100ML 100 ML IV SCH ×2 (10:49→12:18)
--- NOTE | 2019-11-26 11:11 | NUR ---
Nutrition Consult/Assessment Notes please see attached link for complete assessment Est energy needs BW 89 [id number] kcal (23-25kcal/kg BW), Est protein 89-106g (1.0-1.2g/kg BW). Will reassess prn. Addendum: 11/26/19 at [address] Amended: Links added.
[2019-11-26] MEDS: D5W/SOD CHLO 0.9% 1,000 ML IV SCH (12:41)
[2019-11-26 13:00] VITALS: BP 132/90
[2019-11-26] MEDS: HYDROmorphone HCL 2 MG/ML VL IV PRN ×2 (16:20→20:11)
[2019-11-26 16:57] VITALS: BP 124/87
[2019-11-26] MEDS: TPN PER PHARMACY IV NR ×10 (20:19)
[2019-11-26 22:00] VITALS: BP 124/82
[2019-11-27] MEDS: D5W/SOD CHLO 0.9% 1,000 ML IV SCH ×2 (01:40→15:00)
--- NOTE | 2019-11-27 05:39 | NUR ---
BLOOD SUGAR OF 121 WITH NO COVERAGE NEEDED.
[2019-11-27 06:00] VITALS: BP 108/75
[2019-11-27] MEDS: InsuLIN REG 1unit/0.01ml Soln (100units/ml) SC SCH ×3 (06:00→17:54)
[2019-11-27] MEDS: SODIUM CHLOR 0.9% PF (SALINE LOCK) 10ML VIAL/SYR IV SCH ×3 (06:10→22:00)
[2019-11-27] MEDS: ACCU-CHEK COMFORT CURVE STRIP VI SCH ×3 (06:11→17:54)
[2019-11-27] MEDS: PIPERACILLIN-TAZOB 3.375GM 100 ML IV SCH ×2 (06:11→12:05)
[2019-11-27 09:00] VITALS: BP 114/78
[2019-11-27] MEDS: PANTOPRAZOLE 40 MG/10 ML VIAL INJ IV SCH (09:48)
[2019-11-27] MEDS: HYDROmorphone HCL 2 MG/ML VL IV PRN ×3 (09:53→20:17)
[2019-11-27 11:47] LABS: Basophils # (auto) 0.1 10 ^3/uL (0-0.2); Basophils % (auto) 0.7 % (0.0-2.0); Eosinophils # (auto) 0.2 10 ^3/uL (0-0.8); Eosinophils % (auto) 2.7 % (0.0-7.0); Hematocrit 41.4 % (41.0-53.0); Hemoglobin 13.3 g/dL (13.5-17.5); Lymphocytes # (auto) 1.5 10 ^3/uL (0.4-5.4); Lymphocytes % (auto) 20.9 % (10.0-50.0); Mean Corpuscular Hemoglobin 31.7 pg (28.0-32.0); Mean Corpuscular Hgb Conc. 32.2 g/dL (32.0-36.0); Mean Corpuscular Volume 98.7 fL (80.0-100.0); Monocytes # (auto) 0.7 10 ^3/uL (0-1.3); Monocytes % (auto) 9.7 % (0.0-12.0); Neutrophils # (auto) 4.7 10 ^3/uL (1.6-8.6); Nucleated Red Blood Cells % 0.1 %; Platelet Count (auto) 265 10^3/uL (140-450); Red Cell Distribution Width 13.9 % (11.8-14.3); White Blood Cell 7.2 10^3/uL (4.4-10.8)
[2019-11-27 13:00] VITALS: BP 127/82
--- NOTE | 2019-11-27 13:28 | NUR ---
Hospitalist Rounded Dr. Tierney and Dr. Shepard at bedside.
[2019-11-27 13:42] LABS: BUN/Creatinine Ratio 10.5; Calcium 8.6 mg/dL (8.5-10.1); Potassium 4.2 mmol/L (3.5-5.1)
[2019-11-27 13:43] LABS: Albumin 3.5 g/dL (3.4-5.0); Bilirubin, Total 0.6 mg/dL (0.2-1.0); Magnesium 2.4 mg/dL (1.6-2.6); Phosphorus 4.1 mg/dL (2.5-4.90); Total Protein 8.2 g/dL (6.4-8.2)
[2019-11-27] MEDS: metroNIDAZOLE 500MG/100ML 100 ML IV SCH ×2 (13:57→23:45)
[2019-11-27] MEDS: levoFLOXacin 500MG 100 ML IV SCH (14:59)
[2019-11-27 16:25] VITALS: BP 113/83
[2019-11-27] MEDS: TPN PER PHARMACY IV NR ×10 (19:55)
[2019-11-27] MEDS ORDERED: TPN PER PHARMACY IV NR ×9 (20:00)
[2019-11-27 22:00] VITALS: BP 131/86
[2019-11-28] MEDS: ACCU-CHEK COMFORT CURVE STRIP VI SCH ×4 (00:22→17:58)
[2019-11-28] MEDS: HYDROmorphone HCL 2 MG/ML VL IV PRN ×5 (00:35→22:16)
[2019-11-28] MEDS: D5W/SOD CHLO 0.9% 1,000 ML IV SCH ×2 (04:20→17:59)
[2019-11-28 05:00] VITALS: BP 115/74
[2019-11-28 05:38] LABS: Basophils # (auto) 0.1 10 ^3/uL (0-0.2); Eosinophils # (auto) 0.3 10 ^3/uL (0-0.8); Eosinophils % (auto) 3.7 % (0.0-7.0); Hematocrit 39.1 % (41.0-53.0); Hemoglobin 13.4 g/dL (13.5-17.5); Lymphocytes # (auto) 2.7 10 ^3/uL (0.4-5.4); Lymphocytes % (auto) 32.7 % (10.0-50.0); Mean Corpuscular Hemoglobin 31.8 pg (28.0-32.0); Mean Corpuscular Hgb Conc. 34.4 g/dL (32.0-36.0); Mean Corpuscular Volume 92.7 fL (80.0-100.0); Monocytes # (auto) 0.8 10 ^3/uL (0-1.3); Monocytes % (auto) 9.8 % (0.0-12.0); Neutrophils # (auto) 4.3 10 ^3/uL (1.6-8.6); Neutrophils % (auto) 52.8 % (37.0-80.0); Platelet Count (auto) 289 10^3/uL (140-450); Red Blood Cells 4.22 10^6/uL (4.5-5.90); Red Cell Distribution Width 13.4 % (11.8-14.3); White Blood Cell 8.1 10^3/uL (4.4-10.8)
[2019-11-28 05:52] LABS: Albumin 3.3 g/dL (3.4-5.0); Calcium 8.2 mg/dL (8.5-10.1); Magnesium 2.4 mg/dL (1.6-2.6); Potassium 3.9 mmol/L (3.5-5.1)
[2019-11-28 05:56] LABS: BUN/Creatinine Ratio 11.5; Bilirubin, Total 0.4 mg/dL (0.2-1.0); Phosphorus 5.1 mg/dL (2.5-4.90); Total Protein 7.7 g/dL (6.4-8.2)
[2019-11-28] MEDS: metroNIDAZOLE 500MG/100ML 100 ML IV SCH ×3 (05:59→22:15)
[2019-11-28] MEDS: InsuLIN REG 1unit/0.01ml Soln (100units/ml) SC SCH ×4 (06:00→17:58)
[2019-11-28] MEDS ORDERED: OMNIPAQUE ORAL SOLN 500ml 12mg/ml PO ONE (08:24)
[2019-11-28 09:00] VITALS: BP 109/70
[2019-11-28] MEDS: PANTOPRAZOLE 40 MG/10 ML VIAL INJ IV SCH (09:39)
[2019-11-28] MEDS: levoFLOXacin 500MG 100 ML IV SCH (09:40)
[2019-11-28] MEDS: SODIUM CHLOR 0.9% PF (SALINE LOCK) 10ML VIAL/SYR IV SCH (09:43)
--- NOTE | 2019-11-28 10:57 | NUR ---
Off Unit Patient left unit in wheelchair for CT scan.
--- NOTE | 2019-11-28 11:20 | NUR ---
On Unit Patient returned to unit in wheelchair after having CT scan done.
[2019-11-28 12:35] VITALS: BP 119/75
--- NOTE | 2019-11-28 15:36 | NUR ---
Nutrition Followup Notes Pt wt is 89.5 kg Pt was awake with no relatives at bedside when rounded this morning. Pt is with TPN @ 56 ml/hr providing 1460 kcals, 60g protein and 1220 NPCs. Pt is NPO d/t medical condition, pt stating that more tests are to be performed to assess cause of GI distress. Will continue to monitor PO status, skin status, pertinent labs and weight trends. Will f/u in 2-3 days. Est energy needs BW 89 [id number] kcal (23-25kcal/kg BW), Est protein 89-106g (1.0-1.2g/kg BW). Will reassess prn. LABS: Glu 109 H, Alb 3.3 L GI: pt had 4 BM on 11/26 per RN doc. BS: 20 low risk. Refer to wound assessment report for full details. PES: 1) Altered nutrition related lab value r/t current chronic medical condition aeb hypocalcemia, hyperbil 2) Increased nutrient needs r/t current GI condition aeb pt`s NPO with PN support Comments 1) advance PN support to meet > 75% of needs 2) advance diet as medically feasible 3) continue current plan of care
[2019-11-28 17:00] VITALS: BP 118/67
[2019-11-28] MEDS ORDERED: TPN PER PHARMACY IV NR ×9 (20:00)
[2019-11-28 22:00] VITALS: BP 128/82
[2019-11-29] MEDS: SODIUM CHLOR 0.9% PF (SALINE LOCK) 10ML VIAL/SYR IV SCH ×3 (00:53→22:12)
[2019-11-29 05:30] VITALS: BP 117/70
[2019-11-29] MEDS: ACCU-CHEK COMFORT CURVE STRIP VI SCH ×5 (06:00→22:13)
[2019-11-29] MEDS: InsuLIN REG 1unit/0.01ml Soln (100units/ml) SC SCH ×5 (06:00→22:12)
[2019-11-29] MEDS: metroNIDAZOLE 500MG/100ML 100 ML IV SCH (06:19)
[2019-11-29] MEDS: HYDROmorphone HCL 2 MG/ML VL IV PRN ×4 (06:46→20:25)
[2019-11-29] MEDS: D5W/SOD CHLO 0.9% 1,000 ML IV SCH (07:00)
[2019-11-29 07:31] LABS: Albumin 3.4 g/dL (3.4-5.0); Calcium 8.2 mg/dL (8.5-10.1); Magnesium 2.4 mg/dL (1.6-2.6); Potassium 3.8 mmol/L (3.5-5.1)
[2019-11-29 07:36] LABS: BUN/Creatinine Ratio 10.5; Bilirubin, Total 0.3 mg/dL (0.2-1.0); Phosphorus 4.2 mg/dL (2.5-4.90); Total Protein 7.9 g/dL (6.4-8.2)
--- NOTE | 2019-11-29 08:15 | NUR ---
Opening Shift Note Assumed care of patient, awake, alert, and oriented. No S/S of distress/SOB or pain. Bed in lowest/locked position, bed rails up x2, call light within reach. Instructed on POC and to call for assist PRN. Will continue to monitor for changes Q1hr and PRN.
[2019-11-29 09:00] VITALS: BP 114/63
[2019-11-29] MEDS ORDERED: cefTRIAXone 1GM/50ML D5W 50 ML IV SCH (09:00)
[2019-11-29] MEDS: PANTOPRAZOLE 40 MG/10 ML VIAL INJ IV SCH (10:04)
--- NOTE | 2019-11-29 10:10 | NUR ---
MD ROUNDS DR ROSE AT BEDSIDE DISCUSSING POC WITH PATIENT. NEW ORDERS RECEIVED/WILL CARRY OUT. WILL CONTINUE TO MONITOR
--- NOTE | 2019-11-29 11:36 | NUR ---
MD ROUNDS DR YING AT BEDSIDE DISCUSSING POC WITH PATIENT. NEW ORDERS RECEIVED/WILL CARRY OUT. WILL CONTINUE TO MONITOR
--- NOTE | 2019-11-29 12:50 | NUR ---
TPN TAPER TPN AT 35ML/HR. WILL ASSESS BLOOD SUGAR IN 2 HOURS AND CONTINUE TO TAPER. WILL CONTINUE TO MONITOR
[2019-11-29 13:00] VITALS: BP 139/84
--- NOTE | 2019-11-29 16:07 | NUR ---
TPN TAPER TPN AT 18ML/HR. BLOOD SUGAR 91. WILL CONTINUE TO MONITOR
[2019-11-29 17:00] VITALS: BP 122/79
[2019-11-29] MEDS ORDERED: TPN PER PHARMACY IV NR ×9 (20:00)
[2019-11-29] MEDS: cefTRIAXone 1GM/50ML D5W 50 ML IV SCH (20:25)
[2019-11-29 22:00] VITALS: BP 117/73
[2019-11-29] MEDS: metroNIDAZOLE 500 MG TAB PO SCH (22:11)
[2019-11-30] MEDS ORDERED: DEXTROSE 10% 1,000 ML IV ONE (00:45)
[2019-11-30] MEDS: HYDROmorphone HCL 2 MG/ML VL IV PRN ×5 (01:22→23:48)
[2019-11-30 05:00] VITALS: BP 108/75
[2019-11-30] MEDS: InsuLIN REG 1unit/0.01ml Soln (100units/ml) SC SCH ×4 (06:00→23:42)
[2019-11-30] MEDS: ACCU-CHEK COMFORT CURVE STRIP VI SCH ×4 (06:00→23:43)
[2019-11-30] MEDS: SODIUM CHLOR 0.9% PF (SALINE LOCK) 10ML VIAL/SYR IV SCH ×2 (08:48→21:01)
[2019-11-30] MEDS: PANTOPRAZOLE 40 MG/10 ML VIAL INJ IV SCH (08:48)
[2019-11-30] MEDS: cefTRIAXone 1GM/50ML D5W 50 ML IV SCH ×2 (08:48→20:57)
[2019-11-30] MEDS: metroNIDAZOLE 500 MG TAB PO SCH ×2 (08:48→21:01)
[2019-11-30 09:00] VITALS: BP 113/73
--- NOTE | 2019-11-30 10:25 | NUR ---
MD ROUNDS DR ROSE AT BEDSIDE DISCUSSING POC WITH PATIENT. NEW ORDERS RECEIVED/WILL CARRY OUT. WILL CONTINUE TO MONITOR
--- NOTE | 2019-11-30 12:09 | NUR ---
Nutrition Followup Notes Pt wt is 89.7 kg Pt was awake with no relatives at bedside when rounded this morning. Pt TPN is discontinued per MD request. Pt is with a CLD, advanced to a Full Liquid diet this afternoon. Pt appetite is good aeb 100% X2 PO intake per RN doc. Pt with no distress or complaints. Will continue to monitor PO status, skin status, pertinent labs and weight trends. Will f/u in 3-5 days. Est energy needs BW 89 [id number] kcal (23-25kcal/kg BW), Est protein 89-106g (1.0-1.2g/kg BW). Will reassess prn. LABS: Ca 8.2 L, All other Labs WNL GI: pt had 4 BM on 11/26 per RN doc. BS: 20 low risk. Refer to wound assessment report for full details. PES: 1) Altered nutrition related lab value r/t current chronic medical condition aeb hypocalcemia, hyperbil 2) Increased nutrient needs r/t current GI condition aeb pt`s NPO with PN support Comments 1) advance PN support to meet > 75% of needs 2) advance diet as medically feasible 3) continue current plan of care
[2019-11-30 13:00] VITALS: BP 132/57
--- NOTE | 2019-11-30 15:30 | NUR ---
DR STEPAN YING MADE AWARE OF PATIENT'S OUTPATIENT SURGERY WITH DR MORROW
[2019-11-30 17:00] VITALS: BP 117/76
[2019-11-30 22:00] VITALS: BP_SYST 118; BP_SYST 122; BP_DIAS 72; BP_DIAS 77
[2019-12-01 05:15] VITALS: BP 103/70
[2019-12-01] MEDS: InsuLIN REG 1unit/0.01ml Soln (100units/ml) SC SCH (05:23)
[2019-12-01] MEDS: ACCU-CHEK COMFORT CURVE STRIP VI SCH (05:23)
[2019-12-01] MEDS: HYDROmorphone HCL 2 MG/ML VL IV PRN ×5 (05:24→22:52)
--- NOTE | 2019-12-01 07:30 | NUR ---
Opening Shift Note Assuming care of patient at this time. Patient is awake and alert. Patient denies pain. Patient shows no signs or symptoms of distress or shortness of breath. Bed is locked and lowered with side rails up x2. Instructed patient on the plan of care for today and to call for assistance as needed. Call light within reach. Will continue to round hourly and as needed.
[2019-12-01 09:00] VITALS: BP_SYST 120; BP_SYST 145; BP_DIAS 76
[2019-12-01] MEDS: cefTRIAXone 1GM/50ML D5W 50 ML IV SCH ×2 (10:05→21:44)
[2019-12-01] MEDS: metroNIDAZOLE 500 MG TAB PO SCH ×2 (10:06→21:44)
[2019-12-01] MEDS: PANTOPRAZOLE 40 MG/10 ML VIAL INJ IV SCH (10:06)
[2019-12-01] MEDS: SODIUM CHLOR 0.9% PF (SALINE LOCK) 10ML VIAL/SYR IV SCH ×2 (10:08→21:44)
[2019-12-01 12:53] VITALS: BP 122/80
[2019-12-01 16:30] VITALS: BP 136/76
--- NOTE | 2019-12-01 19:45 | NUR ---
Opening Shift Note Assumed care of patient, awake and alert. No S/S of distress/SOB or pain. Instructed on POC and to call for assist PRN, will continue to monitor for changes Q1hr and PRN.
--- NOTE | 2019-12-01 19:49 | NUR ---
Closing Shift Note Patient resting in bed. No distress noted. Report given. Will endorse care to the assistant shift supervisor RN.
[2019-12-01 22:00] VITALS: BP 136/71
[2019-12-02 05:00] VITALS: BP 122/69
[2019-12-02] MEDS: HYDROmorphone HCL 2 MG/ML VL IV PRN ×2 (05:27→10:44)
--- NOTE | 2019-12-02 06:45 | NUR ---
Patient refused for the PICC line to be taken out at this time because he doesn't want an IV access to be restarted. Will give report to oncoming RN.
[2019-12-02 09:00] VITALS: BP 117/75
[2019-12-02] MEDS: cefTRIAXone 1GM/50ML D5W 50 ML IV SCH (10:30)
[2019-12-02] MEDS: SODIUM CHLOR 0.9% PF (SALINE LOCK) 10ML VIAL/SYR IV SCH (10:43)
[2019-12-02] MEDS: metroNIDAZOLE 500 MG TAB PO SCH (10:43)
[2019-12-02] MEDS: PANTOPRAZOLE 40 MG/10 ML VIAL INJ IV SCH (10:43)
[2019-12-02 13:00] VITALS: BP 124/84
[2019-12-02] MEDS ORDERED: MET500T PO (14:19)
[2019-12-02] MEDS ORDERED: LEVO500T21 PO (14:19)
[2019-12-02 16:45] VITALS: BP 124/84
[2019-12-02 17:00] VITALS: BP 139/84
--- NOTE | 2019-12-02 17:25 | NUR ---
Discharge Discharge instructions given as ordered. Encourage to follow up with PMD as instructed. All questions and concerns addressed. Patient verbalized understanding. Medication reconciliation form completed and copy given to patient. PICC line removed with catheter intact, pressure dressing applied. Telemetry unit returned to ICU. Patient instructed to follow-up with Dr. Stafford and PCP. No distress noted at time of departure.
[2020-01-05] MEDS ORDERED: ALPR0.5T7 PO (12:53)
[2020-01-05] MEDS ORDERED: OMEP20TA PO (12:53)
== END 2019-12-02 17:40 | disposition home or self-care (01) | DRG 720 ==
LOC: ER 00:18 → TELE 00:19 → TELE-CENTR 10:38
PROVIDERS: ADMIT Nurse Practitioner; ATTEND Internal Medicine Nephrology
PROC: 02HV33Z Insertion of Infusion Device into Superior Vena Cava, Percutaneous Approach (ICD-10-PCS; principal; 2019-11-25)
PROC: 0W9F3ZZ Drainage of Abdominal Wall, Percutaneous Approach (ICD-10-PCS; 2019-11-25)
DX: A41.9 Sepsis, unspecified organism (principal); E87.6 Hypokalemia; K35.33 Acute appendicitis with perforation, localized peritonitis, and gangrene, with abscess; K57.20 Diverticulitis of large intestine with perforation and abscess without bleeding; E87.1 Hypo-osmolality and hyponatremia; N20.0 Calculus of kidney; Z20.828 Contact with and (suspected) exposure to other viral communicable diseases; F41.9 Anxiety disorder, unspecified
CPT/HCPCS: 10022; 36415; 36569; 71045; 74176; 74177; 75989; 80053; 81001; 82040; 82962; 83036; 83605; 83690; 83735; 84100; 84478; 85025; 85610; 85730; 87040; 87077; 87186; 87205; 96365; 96367; 96375; C1729; C9113; G0378; J0696; J1815; J1956; J2250; J2405; J2543; J3480; J3490; J7042

== ENCOUNTER 2020-01-11 07:06 | Inpatient (IN) | payer MEDICAID ==
[2020-01-05 12:24] LABS: Basophils # (auto) 0 10 ^3/uL (0-0.2); Basophils % (auto) 0.5 % (0.0-2.0); Eosinophils # (auto) 0.1 10 ^3/uL (0-0.8); Hematocrit 42.8 % (41.0-53.0); Hemoglobin 14.4 g/dL (13.5-17.5); Lymphocytes # (auto) 2.7 10 ^3/uL (0.4-5.4); Mean Corpuscular Hemoglobin 31.1 pg (28.0-32.0); Mean Corpuscular Hgb Conc. 33.6 g/dL (32.0-36.0); Mean Corpuscular Volume 92.7 fL (80.0-100.0); Monocytes # (auto) 0.5 10 ^3/uL (0-1.3); Neutrophils # (auto) 3.9 10 ^3/uL (1.6-8.6); Neutrophils % (auto) 54.5 % (37.0-80.0); Nucleated Red Blood Cells % 0.1 %; Platelet Count (auto) 270 10^3/uL (140-450); Red Blood Cells 4.62 10^6/uL (4.5-5.90); Red Cell Distribution Width 14.4 % (11.8-14.3); White Blood Cell 7.3 10^3/uL (4.4-10.8)
[2020-01-05 12:37] LABS: Albumin 4.2 g/dL (3.4-5.0); Calcium 8.5 mg/dL (8.5-10.1); Potassium 3.8 mmol/L (3.5-5.1)
[2020-01-05 12:40] LABS: BUN/Creatinine Ratio 11.3; Bilirubin, Total 0.5 mg/dL (0.2-1.0); Total Protein 7.8 g/dL (6.4-8.2)
[2020-01-05 12:42] LABS: INR 1.04 (0.9-1.15); Partial Thromboplastin Time 29.9 sec (23.0-31.2)
[2020-01-05 13:25] LABS: Urine Bacteria NONE SEEN /hpf (None Seen); Urine Blood Negative /uL (Negative); Urine Mucus FEW (None Seen); Urine Specific Gravity 1.026 (1.001-1.035); Urine WBC 1 /hpf (0 - 3)
[~2020-01-11] VITALS: Ht 175.3 cm; Wt 195.0 kg
[~2020-01-11 07:06] MED LIST changes: -LEVO500T21 PO; -METR500T PO; +OMEP20TA PO; -SACC250C PO
[2020-01-11] MEDS ORDERED: metroNIDAZOLE 500MG/100ML 100 ML IV ONE (07:49)
[2020-01-11] MEDS ORDERED: cefTRIAXone SOD 1,000 MG VL ONE (07:49)
[2020-01-11] MEDS ORDERED: HYDROmorphone HCL 2 MG/ML VL ONE (08:56)
[2020-01-11] MEDS ORDERED: fentaNYL CITRATE 5 ML ONE (08:57)
[2020-01-11] MEDS ORDERED: GLYCOPYRROLATE 0.2 MG/ML 1ML VIAL IV ONE (08:57)
[2020-01-11] MEDS ORDERED: NEOSTIGMINE 1 MG/ML INJ (10mg/10ML VIAL) IV ONE (08:57)
[2020-01-11] MEDS ORDERED: fentaNYL CITRATE 100 MCG/2 ML VL ONE (08:57)
[2020-01-11] MEDS ORDERED: MIDAZOLAM HCL 1MG/1ML-2 ML VIAL ONE (08:57)
[2020-01-11] MEDS ORDERED: ROCURONIUM 10MG/ML 10ML VIAL IV ONE (08:58)
[2020-01-11] MEDS ORDERED: DexAMETHasone SOD PHOS 10MG/1ML VIAL INJ ONE (08:58)
[2020-01-11] MEDS ORDERED: PROPOFOL 10 MG/ML 20 ML IV ONE (08:58)
[2020-01-11] MEDS ORDERED: ONDANSETRON HCL 4 MG/2 ML VIAL IV PRN (10:00)
[2020-01-11] MEDS ORDERED: LABETALOL HCL 5 MG/ML 4ML SYRINGE IV PRN (10:00)
[2020-01-11] MEDS ORDERED: ePHEDrine SULFATE 50 MG/ML AMP IV PRN (10:00)
[2020-01-11] MEDS ORDERED: KETOROLAC TROMETH 30 MG/ML 1ML VIAL IV ONE (10:00)
[2020-01-11] MEDS ORDERED: MORPHINE SULFATE 4 MG/ML SYR/VIAL IV PRN (10:00)
[2020-01-11] MEDS ORDERED: KETOROLAC TROMETH 30 MG/ML 1ML VIAL IV PRN (11:15)
[2020-01-11] MEDS: HYDROmorphone HCL 2 MG/ML VL IV PRN ×8 (11:50→23:41)
[2020-01-11] MEDS: metroNIDAZOLE 500MG/100ML 100 ML IV SCH ×2 (14:58→21:33)
[2020-01-11 16:35] VITALS: BP 128/72
[2020-01-11] MEDS: D5W/SOD CHL 0.45%/KCL 20MEQ 1,000 ML IV SCH (17:59)
[2020-01-11 18:09] LABS: Basophils # (auto) 0 10 ^3/uL (0-0.2); Basophils % (auto) 0.1 % (0.0-2.0); Eosinophils # (auto) 0 10 ^3/uL (0-0.8); Hematocrit 41.6 % (41.0-53.0); Hemoglobin 13.8 g/dL (13.5-17.5); Lymphocytes # (auto) 0.8 10 ^3/uL (0.4-5.4); Lymphocytes % (auto) 4.5 % (10.0-50.0); Mean Corpuscular Hemoglobin 30.9 pg (28.0-32.0); Mean Corpuscular Hgb Conc. 33.2 g/dL (32.0-36.0); Mean Corpuscular Volume 93.1 fL (80.0-100.0); Monocytes # (auto) 0.4 10 ^3/uL (0-1.3); Monocytes % (auto) 2.4 % (0.0-12.0); Neutrophils # (auto) 16.6 10 ^3/uL (1.6-8.6); Platelet Count (auto) 287 10^3/uL (140-450); Red Blood Cells 4.47 10^6/uL (4.5-5.90); Red Cell Distribution Width 14.1 % (11.8-14.3); White Blood Cell 17.8 10^3/uL (4.4-10.8)
[2020-01-11] MEDS: LORazepam 2MG/ML-1ML VIAL IV PRN (19:50)
[2020-01-11 22:00] VITALS: BP 135/89
[2020-01-11] MEDS: ONDANSETRON HCL 4 MG/2 ML VIAL IV PRN (23:41)
[2020-01-12] MEDS: ONDANSETRON HCL 4 MG/2 ML VIAL IV PRN ×4 (04:26→20:21)
[2020-01-12] MEDS: HYDROmorphone HCL 2 MG/ML VL IV PRN ×6 (04:33→23:04)
[2020-01-12 05:00] VITALS: BP 138/91
[2020-01-12] MEDS: D5W/SOD CHL 0.45%/KCL 20MEQ 1,000 ML IV SCH ×2 (05:27→20:22)
[2020-01-12] MEDS: metroNIDAZOLE 500MG/100ML 100 ML IV SCH ×3 (05:30→21:35)
[2020-01-12 06:00] LABS: Basophils # (auto) 0 10 ^3/uL (0-0.2); Basophils % (auto) 0.1 % (0.0-2.0); Eosinophils # (auto) 0 10 ^3/uL (0-0.8); Hematocrit 39.5 % (41.0-53.0); Lymphocytes # (auto) 1.3 10 ^3/uL (0.4-5.4); Lymphocytes % (auto) 9.5 % (10.0-50.0); Mean Corpuscular Hemoglobin 30.3 pg (28.0-32.0); Mean Corpuscular Hgb Conc. 32.8 g/dL (32.0-36.0); Mean Corpuscular Volume 92.4 fL (80.0-100.0); Monocytes # (auto) 1.5 10 ^3/uL (0-1.3); Monocytes % (auto) 11.1 % (0.0-12.0); Neutrophils # (auto) 10.9 10 ^3/uL (1.6-8.6); Neutrophils % (auto) 79.3 % (37.0-80.0); Platelet Count (auto) 271 10^3/uL (140-450); Red Blood Cells 4.28 10^6/uL (4.5-5.90); Red Cell Distribution Width 13.8 % (11.8-14.3); White Blood Cell 13.8 10^3/uL (4.4-10.8)
[2020-01-12 06:34] LABS: Potassium 4.3 mmol/L (3.5-5.1)
[2020-01-12 06:43] LABS: BUN/Creatinine Ratio 16.2; Calcium 8.2 mg/dL (8.5-10.1)
[2020-01-12] MEDS: cefTRIAXone 1GM/50ML D5W 50 ML IV SCH (08:58)
[2020-01-12] MEDS: PANTOPRAZOLE 40 MG/10 ML VIAL INJ IV SCH (08:58)
[2020-01-12 09:00] VITALS: BP 140/65
[2020-01-12] MEDS ORDERED: SORE THROAT SPRAY 6OZ BOTTLE MT PRN (10:00)
[2020-01-12 13:00] VITALS: BP_SYST 101; BP_SYST 134; BP_DIAS 70; BP_DIAS 87
[2020-01-12 17:06] VITALS: BP 136/96
[2020-01-12] MEDS: LORazepam 2MG/ML-1ML VIAL IV PRN (21:35)
[2020-01-12 21:37] VITALS: BP 134/91
[2020-01-13] MEDS: ONDANSETRON HCL 4 MG/2 ML VIAL IV PRN ×2 (02:24→06:26)
[2020-01-13] MEDS: HYDROmorphone HCL 2 MG/ML VL IV PRN ×7 (02:32→23:35)
[2020-01-13 05:00] VITALS: BP 141/95
[2020-01-13] MEDS: metroNIDAZOLE 500MG/100ML 100 ML IV SCH ×3 (05:47→21:45)
[2020-01-13 06:41] LABS: Basophils # (auto) 0 10 ^3/uL (0-0.2); Basophils % (auto) 0.4 % (0.0-2.0); Eosinophils # (auto) 0 10 ^3/uL (0-0.8); Eosinophils % (auto) 0.1 % (0.0-7.0); Hematocrit 38.1 % (41.0-53.0); Lymphocytes # (auto) 1.9 10 ^3/uL (0.4-5.4); Lymphocytes % (auto) 18.9 % (10.0-50.0); Mean Corpuscular Hemoglobin 31.5 pg (28.0-32.0); Mean Corpuscular Hgb Conc. 34.2 g/dL (32.0-36.0); Monocytes # (auto) 1.3 10 ^3/uL (0-1.3); Monocytes % (auto) 12.6 % (0.0-12.0); Neutrophils # (auto) 6.8 10 ^3/uL (1.6-8.6); Nucleated Red Blood Cells % 0.1 %; Platelet Count (auto) 238 10^3/uL (140-450); Red Blood Cells 4.14 10^6/uL (4.5-5.90); Red Cell Distribution Width 14.2 % (11.8-14.3)
[2020-01-13 07:04] LABS: Potassium 3.7 mmol/L (3.5-5.1)
[2020-01-13 07:15] LABS: BUN/Creatinine Ratio 8.8; Calcium 8.1 mg/dL (8.5-10.1)
[2020-01-13 09:00] VITALS: BP 139/92
[2020-01-13] MEDS: cefTRIAXone 1GM/50ML D5W 50 ML IV SCH (09:43)
[2020-01-13] MEDS: D5W/SOD CHL 0.45%/KCL 20MEQ 1,000 ML IV SCH (09:43)
[2020-01-13] MEDS: PANTOPRAZOLE 40 MG/10 ML VIAL INJ IV SCH (09:44)
[2020-01-13 13:00] VITALS: BP 132/81
[2020-01-13 17:00] VITALS: BP 133/89
[2020-01-13 21:57] VITALS: BP 130/91
[2020-01-14] MEDS: D5W/SOD CHL 0.45%/KCL 20MEQ 1,000 ML IV SCH ×2 (01:47→11:02)
[2020-01-14] MEDS: HYDROmorphone HCL 2 MG/ML VL IV PRN ×7 (01:59→23:11)
[2020-01-14 05:42] VITALS: BP 140/97
[2020-01-14] MEDS: metroNIDAZOLE 500MG/100ML 100 ML IV SCH ×3 (05:48→22:07)
[2020-01-14 07:06] LABS: Basophils # (auto) 0 10 ^3/uL (0-0.2); Basophils % (auto) 0.5 % (0.0-2.0); Eosinophils # (auto) 0.1 10 ^3/uL (0-0.8); Eosinophils % (auto) 0.7 % (0.0-7.0); Hematocrit 39.6 % (41.0-53.0); Hemoglobin 13.6 g/dL (13.5-17.5); Lymphocytes # (auto) 2.2 10 ^3/uL (0.4-5.4); Lymphocytes % (auto) 24.9 % (10.0-50.0); Mean Corpuscular Hemoglobin 31.7 pg (28.0-32.0); Mean Corpuscular Hgb Conc. 34.3 g/dL (32.0-36.0); Mean Corpuscular Volume 92.4 fL (80.0-100.0); Monocytes # (auto) 1.3 10 ^3/uL (0-1.3); Monocytes % (auto) 15.3 % (0.0-12.0); Neutrophils # (auto) 5.2 10 ^3/uL (1.6-8.6); Neutrophils % (auto) 58.6 % (37.0-80.0); Nucleated Red Blood Cells % 0.1 %; Platelet Count (auto) 265 10^3/uL (140-450); Red Blood Cells 4.29 10^6/uL (4.5-5.90); Red Cell Distribution Width 13.9 % (11.8-14.3); White Blood Cell 8.8 10^3/uL (4.4-10.8)
[2020-01-14 07:07] LABS: Calcium 8.2 mg/dL (8.5-10.1); Potassium 3.6 mmol/L (3.5-5.1)
[2020-01-14 08:00] VITALS: BP 138/87
[2020-01-14] MEDS: PANTOPRAZOLE 40 MG/10 ML VIAL INJ IV SCH (08:30)
[2020-01-14] MEDS: cefTRIAXone 1GM/50ML D5W 50 ML IV SCH (08:31)
[2020-01-14 12:00] VITALS: BP 140/84
[2020-01-14 16:00] VITALS: BP 127/88
[2020-01-14] MEDS: ONDANSETRON HCL 4 MG/2 ML VIAL IV PRN (18:26)
[2020-01-14 22:02] VITALS: BP 135/93
[2020-01-15] MEDS: D5W/SOD CHL 0.45%/KCL 20MEQ 1,000 ML IV SCH ×2 (01:15→05:46)
[2020-01-15] MEDS: HYDROmorphone HCL 2 MG/ML VL IV PRN ×5 (04:31→22:29)
[2020-01-15 05:00] VITALS: BP 139/93
[2020-01-15] MEDS: metroNIDAZOLE 500MG/100ML 100 ML IV SCH ×3 (05:46→22:29)
[2020-01-15] MEDS: cefTRIAXone 1GM/50ML D5W 50 ML IV SCH (08:41)
[2020-01-15 08:42] VITALS: BP 132/93
[2020-01-15] MEDS: PANTOPRAZOLE 40 MG/10 ML VIAL INJ IV SCH (08:44)
[2020-01-15 12:34] VITALS: BP 148/91
[2020-01-15 16:29] VITALS: BP 133/96
[2020-01-15 22:00] VITALS: BP 139/86
[2020-01-16] MEDS: D5W/SOD CHL 0.45%/KCL 20MEQ 1,000 ML IV SCH ×2 (00:10→16:45)
[2020-01-16] MEDS: HYDROmorphone HCL 2 MG/ML VL IV PRN ×5 (04:21→22:02)
[2020-01-16 05:00] VITALS: BP 122/89
[2020-01-16] MEDS: metroNIDAZOLE 500MG/100ML 100 ML IV SCH ×3 (05:29→21:50)
[2020-01-16 06:57] LABS: Basophils # (auto) 0.1 10 ^3/uL (0-0.2); Basophils % (auto) 1.2 % (0.0-2.0); Eosinophils # (auto) 0.2 10 ^3/uL (0-0.8); Eosinophils % (auto) 2.8 % (0.0-7.0); Hematocrit 39.2 % (41.0-53.0); Hemoglobin 13.1 g/dL (13.5-17.5); Lymphocytes # (auto) 2.6 10 ^3/uL (0.4-5.4); Lymphocytes % (auto) 34.1 % (10.0-50.0); Mean Corpuscular Hemoglobin 30.7 pg (28.0-32.0); Mean Corpuscular Hgb Conc. 33.3 g/dL (32.0-36.0); Mean Corpuscular Volume 92.3 fL (80.0-100.0); Monocytes # (auto) 0.8 10 ^3/uL (0-1.3); Monocytes % (auto) 10.6 % (0.0-12.0); Neutrophils # (auto) 3.9 10 ^3/uL (1.6-8.6); Neutrophils % (auto) 51.3 % (37.0-80.0); Nucleated Red Blood Cells % 0.1 %; Platelet Count (auto) 273 10^3/uL (140-450); Red Blood Cells 4.25 10^6/uL (4.5-5.90); Red Cell Distribution Width 13.8 % (11.8-14.3); White Blood Cell 7.7 10^3/uL (4.4-10.8)
[2020-01-16 07:15] LABS: BUN/Creatinine Ratio 11.7; Calcium 8.5 mg/dL (8.5-10.1); Potassium 3.7 mmol/L (3.5-5.1)
[2020-01-16 09:00] VITALS: BP 120/72
[2020-01-16] MEDS: cefTRIAXone 1GM/50ML D5W 50 ML IV SCH (09:13)
[2020-01-16] MEDS: PANTOPRAZOLE 40 MG/10 ML VIAL INJ IV SCH (09:14)
[2020-01-16 13:00] VITALS: BP 129/79
[2020-01-16] MEDS ORDERED: LEVO500T21 PO (13:38)
[2020-01-16] MEDS ORDERED: METR500T PO (13:38)
[2020-01-16] MEDS ORDERED: HYDR-4833 PO (13:38)
[2020-01-16 17:37] VITALS: BP 134/96
[2020-01-16] MEDS: ONDANSETRON HCL 4 MG/2 ML VIAL IV PRN (19:05)
[2020-01-16 20:00] VITALS: BP 133/90
[2020-01-16 22:00] VITALS: BP 133/90
[2020-01-17] MEDS: HYDROmorphone HCL 2 MG/ML VL IV PRN (00:53)
[2020-01-17 05:00] VITALS: BP 139/85
[2020-01-17] MEDS: metroNIDAZOLE 500MG/100ML 100 ML IV SCH (06:03)
[2020-01-17] MEDS: D5W/SOD CHL 0.45%/KCL 20MEQ 1,000 ML IV SCH (08:05)
[2020-01-17 09:00] VITALS: BP 136/94
[2020-01-17] MEDS: cefTRIAXone 1GM/50ML D5W 50 ML IV SCH (09:09)
== END 2020-01-17 10:00 | disposition home health service (06) | DRG 231 ==
LOC: SUR 07:06 → WEST WING 07:07
PROVIDERS: ADMIT Surgery; ATTEND Surgery
PROC: 0DTJ0ZZ Resection of Appendix, Open Approach (ICD-10-PCS; 2020-01-11)
PROC: 0DTG0ZZ Resection of Left Large Intestine, Open Approach (ICD-10-PCS; principal; 2020-01-11 09:10)
DX: K57.20 Diverticulitis of large intestine with perforation and abscess without bleeding (principal); K21.9 Gastro-esophageal reflux disease without esophagitis; N35.911 Unspecified urethral stricture, male, meatal; L02.818 Cutaneous abscess of other sites; K36 Other appendicitis; Z20.828 Contact with and (suspected) exposure to other viral communicable diseases; Q54.9 Hypospadias, unspecified; Z79.899 Other long term (current) drug therapy; Z79.01 Long term (current) use of anticoagulants; Z79.891 Long term (current) use of opiate analgesic
CPT/HCPCS: 36415; 71045; 80048; 80053; 81001; 83605; 85025; 85610; 85730; 86850; 86900; 86901; C9113; G0378; J0696; J1100; J1885; J2250; J2405; J2704; J3490

== ENCOUNTER 2023-04-02 16:13 | Inpatient (IN) | payer OTHER, MEDICAID ==
[~2023-04-02] VITALS: Ht 177.8 cm; Wt 99.3 kg
[~2023-04-02 16:13] MED LIST changes: +HYDR-4833 PO; +LEVO500T31 PO; +METR500T PO
[2023-04-02 17:12] LABS: Basophils # (auto) 0.1 10 ^3/uL (0-0.2); Basophils % (auto) 0.7 % (0.0-2.0); Eosinophils # (auto) 0.1 10 ^3/uL (0-0.8); Eosinophils % (auto) 1.1 % (0.0-7.0); Hematocrit 48.5 % (41.0-53.0); Hemoglobin 16.3 g/dL (13.5-17.5); Lymphocytes # (auto) 3.7 10 ^3/uL (0.4-5.4); Lymphocytes % (auto) 35.7 % (10.0-50.0); Mean Corpuscular Hemoglobin 32.3 pg (28.0-32.0); Mean Corpuscular Hgb Conc. 33.6 g/dL (32.0-36.0); Mean Corpuscular Volume 96.2 fL (80.0-100.0); Monocytes # (auto) 0.8 10 ^3/uL (0-1.3); Monocytes % (auto) 8.1 % (0.0-12.0); Neutrophils # (auto) 5.6 10 ^3/uL (1.6-8.6); Neutrophils % (auto) 54.4 % (37.0-80.0); Nucleated Red Blood Cells % 0.1 %; Red Blood Cells 5.04 10^6/uL (4.5-5.90); Red Cell Distribution Width 12.8 % (11.8-14.3); White Blood Cell 10.4 10^3/uL (4.4-10.8)
[2023-04-02 17:25] LABS: Alanine Aminotransferase 230 U/L (7-40); Albumin 4.9 g/dL (3.2-4.8); Alkaline Phosphatase 93 U/L (46-116); Anion Gap 10 (5-15); Aspartate Aminotransferase 95 U/L (13-40); BUN/Creatinine Ratio 11.6 (10.0-20.0); Blood Urea Nitrogen 10 mg/dL (9-23); Calcium 9.4 mg/dL (8.5-10.1); Carbon Dioxide 25 mmol/L (20-30); Chloride 105 mmol/L (98-107); Glucose 86 mg/dL (74-106); Sodium 140 mmol/L (136-145)
[2023-04-02 17:26] LABS: Bilirubin, Total 0.6 mg/dL (0.2-1.0); Total Protein 7.8 g/dL (5.7-8.2)
[2023-04-02 19:02] LABS: Urine Bacteria FEW /hpf (None Seen); Urine Blood Negative /uL (Negative); Urine Clarity Clear (Clear); Urine Color Yellow (Yellow); Urine Mucus FEW (None Seen); Urine Protein, UAD TRACE (Negative); Urine Urobilinogen Normal (Negative); Urine WBC 1 /hpf (0 - 3)
[2023-04-02] MEDS ORDERED: ASPirin 325 MG TAB PO ONE (19:15)
[2023-04-02] MEDS ORDERED: metroNIDAZOLE 500MG/100ML 100 ML IV ONE (20:30)
[2023-04-02] MEDS ORDERED: NITROGLYCERIN 0.4 MG SL TAB SL PRN (21:00)
[2023-04-02] MEDS ORDERED: ONDANSETRON HCL 4 MG/2 ML VIAL IV PRN (21:00)
[2023-04-02] MEDS ORDERED: DOCUSATE SOD 100 MG CAP PO PRN (21:00)
[2023-04-02] MEDS ORDERED: MORPHINE SULFATE INJ 2 MG/ml SYRG IV PRN ×2 (21:00)
[2023-04-02] MEDS ORDERED: ACETAMINOPHEN 325 MG TAB PO PRN (21:00)
[2023-04-02] MEDS ORDERED: SODIUM CHLORIDE 0.9% 1,000 ML IV ONE (22:45)
[2023-04-02 23:50] LABS: Erythrocyte Sedimentation Rate 8 mm/hr (0-20)
[2023-04-03] VITALS (8 sets, daily range): BP systolic 140–170; BP diastolic 88–108; PULSE 63–98; RESP 17–20; TEMP 97.9–98.4; O2SAT 97–98
[2023-04-03] MEDS: HYDROcodone-ACET 5/325MG TAB PO PRN ×2 (01:52→10:12)
[2023-04-03 06:35] LABS: Basophils # (auto) 0.1 10 ^3/uL (0-0.2); Basophils % (auto) 0.7 % (0.0-2.0); Eosinophils # (auto) 0.1 10 ^3/uL (0-0.8); Eosinophils % (auto) 1.1 % (0.0-7.0); Hematocrit 44.7 % (41.0-53.0); Hemoglobin 15.2 g/dL (13.5-17.5); Lymphocytes # (auto) 3.3 10 ^3/uL (0.4-5.4); Mean Corpuscular Hemoglobin 32.6 pg (28.0-32.0); Mean Corpuscular Hgb Conc. 33.9 g/dL (32.0-36.0); Monocytes # (auto) 0.7 10 ^3/uL (0-1.3); Neutrophils % (auto) 49.2 % (37.0-80.0); Red Blood Cells 4.65 10^6/uL (4.5-5.90); Red Cell Distribution Width 12.6 % (11.8-14.3); White Blood Cell 8.2 10^3/uL (4.4-10.8)
[2023-04-03 06:59] LABS: Alanine Aminotransferase 195 U/L (7-40); Alkaline Phosphatase 81 U/L (46-116); Anion Gap 11 (5-15); BUN/Creatinine Ratio 7.9 (10.0-20.0); Blood Urea Nitrogen 6 mg/dL (9-23); Calcium 8.7 mg/dL (8.7-10.4); Carbon Dioxide 24 mmol/L (20-30); Chloride 105 mmol/L (98-107); Glucose 68 mg/dL (74-106); Potassium 3.6 mmol/L (3.5-5.1); Sodium 140 mmol/L (136-145)
[2023-04-03 07:00] LABS: Albumin 4.5 g/dL (3.2-4.8); Aspartate Aminotransferase 76 U/L (13-40); Bilirubin, Total 0.9 mg/dL (0.2-1.0)
[2023-04-03] MEDS ORDERED: PATIENTS OWN MEDICATION (Omeprazole (Gnp Omeprazole) 1 TAB) PO SCH (10:00)
[2023-04-03] MEDS: PANTOPRAZOLE 40 MG TAB PO SCH (10:12)
[2023-04-03] MEDS ORDERED: cefTRIAXone 1GM/50ML D5W 50 ML IV ONE (11:30)
[2023-04-03] MEDS: metroNIDAZOLE 500MG/100ML 100 ML IV SCH ×2 (14:22→21:35)
[2023-04-03] MEDS: ALPRAZolam 0.5 MG TAB PO PRN (20:08)
[2023-04-03] MEDS: hydrALAZINE HCL 20 MG/ML VL IV PRN (23:25)
[2023-04-04] VITALS (7 sets, daily range): BP systolic 106–162; BP diastolic 57–105; PULSE 83–131; RESP 16–20; TEMP 97.5–98.7; O2SAT 96–100
[2023-04-04] MEDS: metroNIDAZOLE 500MG/100ML 100 ML IV SCH ×3 (05:17→21:32)
[2023-04-04] MEDS: hydrALAZINE HCL 20 MG/ML VL IV PRN (08:01)
[2023-04-04] MEDS: PANTOPRAZOLE 40 MG TAB PO SCH (09:19)
[2023-04-04] MEDS: cefTRIAXone 1GM/50ML D5W 50 ML IV SCH (09:19)
[2023-04-04] MEDS: LISINOPRIL 10 MG TAB PO SCH (09:19)
[2023-04-04] MEDS: ALPRAZolam 0.5 MG TAB PO PRN (15:27)
[2023-04-05 05:00] VITALS: BP 119/89; PULSE 84; RESP 16; TEMP 97.8; O2SAT 97
[2023-04-05] MEDS: metroNIDAZOLE 500MG/100ML 100 ML IV SCH (05:26)
[2023-04-05 08:00] VITALS: PULSE 87
[2023-04-05] MEDS: cefTRIAXone 1GM/50ML D5W 50 ML IV SCH (08:56)
[2023-04-05 09:00] VITALS: BP 129/81; PULSE 92; RESP 17; TEMP 98.8; O2SAT 97
[2023-04-05] MEDS: PANTOPRAZOLE 40 MG TAB PO SCH (09:01)
[2023-04-05] MEDS: LISINOPRIL 10 MG TAB PO SCH (09:02)
[2023-04-05] MEDS ORDERED: LEVO500T91 PO (11:21)
[2023-04-05] MEDS ORDERED: TRAM50TA2 PO (11:21)
[2023-04-05] MEDS ORDERED: LISI20TA56 PO (11:21)
[2023-04-05] MEDS ORDERED: MET500T PO (11:23)
== END 2023-04-05 13:26 | disposition home or self-care (01) | DRG 694 ==
LOC: ER 16:13 → TELE 20:51 → TELE-WESTW 20:51
PROVIDERS: ADMIT Nurse Practitioner Family; ATTEND Family Medicine
DX: N20.0 Calculus of kidney (principal); F41.9 Anxiety disorder, unspecified; R79.89 Other specified abnormal findings of blood chemistry; K21.9 Gastro-esophageal reflux disease without esophagitis; R19.7 Diarrhea, unspecified; R74.01 Elevation of levels of liver transaminase levels; N28.1 Cyst of kidney, acquired; I10 Essential (primary) hypertension; R74.8 Abnormal levels of other serum enzymes; Z79.891 Long term (current) use of opiate analgesic; Z79.899 Other long term (current) drug therapy; Z90.49 Acquired absence of other specified parts of digestive tract; Z82.49 Family history of ischemic heart disease and other diseases of the circulatory system
CPT/HCPCS: 36415; 74176; 76775; 80053; 81001; 83605; 83690; 84484; 85025; 85652; 86141; 93306; 93886; 99291; G0378; J0696; J2405; J3490